=== PATIENT | female | born 1940 | race Caucasian/White ===

== ENCOUNTER → 2019-06-10 13:05 | Outpatient (CLI) | payer MEDICARE, SELFPAY | PROVIDERS: PCP Emergency Medicine; Visit Provider Emergency Medicine | DX: I25.10 Atherosclerotic heart disease of native coronary artery without angina pectoris (principal) | CPT/HCPCS: 93306 ==

== ENCOUNTER → 2019-07-01 13:32 | Outpatient (CLI) | payer MEDICARE, SELFPAY ==
--- NOTE | 2019-07-01 13:41 | XR_ITS ---
PROCEDURE: XR SHOULDER RT MIN 2V CLINICAL INDICATION: right shoulder pain COMPARISON: No exams were available for comparison FINDINGS: There are moderate osteoarthritic changes of the glenohumeral joint. There is irregularity of the humeral head at the greater tuberosity. No fracture or dislocation. IMPRESSION: Osteoarthritic changes of the glenohumeral joint Dictated by: Crow Oneill MD 07/01/2019 17:01 Electronically signed by Crow Oneill MD in [place] 07/01/2019 17:01
== END ==
PROVIDERS: PCP Emergency Medicine; Visit Provider Orthopaedic Surgery
DX: M25.511 Pain in right shoulder (principal)
CPT/HCPCS: 73030

== ENCOUNTER 2019-07-29 13:09 | Inpatient (IN) ==
--- NOTE | 2019-07-29 13:12 | Emergency Department Note ---
ED Disposition Clinical Impression: Acute and chronic respiratory failure with hypoxia Community acquired pneumonia Qualifiers: Laterality: right Lung location: lower lobe of lung Qualified Code(s): J18.1 - Lobar pneumonia, unspecified organism Disposition: Admitted As Inpatient Condition on Discharge: Fair Instructions: Pneumonia-Adult Additional Instructions: Patient admitted with sepsis protocol for healthcare acquired pneumonia being bolused with a liter of lactated Ringer and a liter of normal saline and being started on Zosyn and vancomycin with pharmacy to dose and also being placed on 30% Ventimask for oxygen Time of Disposition: 14:09 - Critical Care Critical Care Time: Yes Attestation: On , the high probability of a clinically significant, sudden or life threatening deterioration of the following system(s) required my full and direct attention, intervention and personal management. The time I documented below is in addition to time spent performing reported procedures but includes the following listed in this critical care notation. Total Critical Care Time: 35 Vital system(s) involved:: Respiratory Failure My critical care processes included: Assessment & monitoring of V/S, Initial and Re-exams, Data Review/Interpretation, Coordinating Care, Medication Orders and management, Documentation Medical Decision Making - Medical Records Medical records reviewed: Yes: I reviewed the patient's medical records. - Aldo Inquiry Pt receiving controlled substance: No Aldo was queried for this patient: No Vital Signs: 07/29/19 13:23 Temperature 97.5 F L Temperature Source Oral Pulse Rate [Left Radial] 92 H Respiratory Rate 29 H Blood Pressure [Right Arm] 120/47 L Blood Pressure Mean [Right Arm] 71 Blood Pressure Source [Right Arm] Automatic Cuff Blood Pressure Position [Right Arm] Sitting 02 Sat by Pulse Oximetry 91 L Oxygen Delivery Method Room Air - Lab Data Lab results reviewed: Yes: I reviewed the patient's lab results. Lab Results 07/29/19 13:00: WBC 18.1 H, RBC 4.45, Hgb 12.3, Hct 41.0, MCV 92.0, MCH 27.7, MCHC 30.1 L, RDW 15.2, Plt Count 545 H, MPV 7.7, Neut % (Auto) 85.8 H, Lymph % (Auto) 7.2 L, [place] % (Auto) 6.8, Eos % (Auto) 0.1, Baso % (Auto) 0.2, Neut # (Auto) 15.5 H, Lymph # (Auto) 1.3, [place] # (Auto) 1.2 H, Eos # (Auto) 0.0, Baso # (Auto) 0.0 07/29/19 13:12: Specimen Source Right brachial, O2 % Room air, ABG pH 7.47 H, ABG pCO2 29.2 L, ABG pO2 54.2 L, ABG HCO3 20.9 L, ABG Total CO2 21.8 L, ABG O2 Saturation 90, ABG Base Excess -2.7 L, Crow Test Acceptable Result diagrams: 07/29/19 13:00 Orders (Tests/Meds): ED MEDICATIONS Generic Name Dose Route Start Last Admin Trade Name Freq PRN Reason Stop Dose Admin Sodium Chloride 1,000 mls @ 999 mls/hr 07/29/19 14:00 Sod Chlor 0.9% 1000ml Bag IV 07/29/19 15:00 .Q1H1M FRANCK Piperacillin Sod/Tazobactam 100 mls @ 100 mls/hr 07/29/19 13:59 Sod 3.375 gm/ Sodium Chloride IV 07/29/19 14:58 ONCE ONE Protocol Lactated Ringer's 1,000 mls @ 999 mls/hr 07/29/19 14:15 Lactated Ringer's 1000 Ml Bag IV 07/29/19 15:15 .Q1H1M FRANCK Miscellaneous 1 each 07/29/19 14:00 Vancomycin Consult Request * 08/28/19 13:59 CONSULT PHARMACY FRANCK Discontinued Medications Generic Name Dose Route Start Last Admin Trade Name Freq PRN Reason Stop Dose Admin Albuterol Sulfate 2.5 mg 07/29/19 13:14 Albuterol 0.083% 2.5mg/3ml Neb IH 07/29/19 13:15 ONCE ONE Lactated Ringer's 1,910 mls @ 955 mls/hr 07/29/19 13:59 07/29/19 14:02 Lactated Ringer's 1000 Ml Bag 30 ml/kg infuse over 2 hr (1910 ml) 07/29/19 15:58 Not Given IV .Q2H ONE ORDERS Category Date Time Status XR chest portable Stat Exams 07/29/19 13:07 Taken BNP [B-Type Natriuretic Peptide] Stat Lab 07/29/19 13:00 Received Complete Blood Count Auto Diff Stat Lab 07/29/19 13:00 Results Comprehensive Metabolic Panel Stat Lab 07/29/19 13:00 Received Lactic Acid Stat Lab 07/29/19 13:07 Ordered Rapid Influenza A&B Antigens Stat Lab 07/29/19 13:12 Ordered Strep Scrn Group A (Rapid) Stat Lab 07/29/19 13:12 Ordered Troponin I Stat Lab 07/29/19 13:00 Received Blood Culture Stat Micro 07/29/19 13:07 Ordered - Radiology Data #1 Image(s): Chest Image Reviewed: Yes I reviewed the patient's radiology results, Yes I reviewed the patient's radiology image Right lower lobe pneumonia General Adult HPI - General Stated complaint: soa Time Seen by Provider: 07/29/19 13:09 Mode of Arrival: EMS Source of Information: Patient, EMS Limitations: Physical Limitations - History of Present Illness HPI narrative: Patient is a 78-year-old white female from [facility] who comes in with complaint of shortness of breath and cough for the past 2 weeks she is continually coughing to the point that she can hardly answer questions but she says she may have had some fever and is coughing up some yellow mucus she also has a sore throat and says her chest hurts Onset (ago): week(s) Location: chest - Related Data Home Medications Medication Instructions Recorded Confirmed Aspirin [Aspirin 81mg chewable 81 mg PO DAILY 07/14/18 07/29/19 tab] alendronate 70 mg tablet 70 mg PO QWEEK 03/20/19 07/29/19 benzonatate 100 mg capsule 100 mg PO DAILY PRN cap 03/20/19 07/29/19 guaifenesin 100 mg/5 mL oral liquid 200 mg PO Q4H PRN 03/20/19 07/29/19 loperamide 2 mg capsule 2 mg PO Q3H PRN cap 03/20/19 07/29/19 nitroglycerin 0.4 mg sublingual 0.4 mg SUBLINGUAL Q5-15M PRN 03/20/19 07/29/19 tablet acetaminophen 325 mg capsule 325 mg PO Q6H PRN 07/09/19 07/29/19 Allergies Allergy/AdvReac Type Severity Reaction Status Date / Time morphine Allergy Severe Anaphylaxis Verified 07/16/19 11:53 hydrocodone Allergy Intermediate Verified 07/16/19 11:53 atropine [From ] Allergy Mild Verified 07/16/19 11:53 calcium Allergy Mild Verified 07/16/19 11:53 calcium carbonate Allergy Mild Verified 07/16/19 11:53 [From Florical] codeine Allergy Mild Verified 07/16/19 11:53 dicyclomine [From Bentyl] Allergy Mild Verified 07/16/19 11:53 erythromycin base Allergy Mild Verified 07/16/19 11:53 [From Erythrocin] hyoscyamine [From ] Allergy Mild Verified 07/16/19 11:53 levofloxacin [From Levaquin] Allergy Mild Verified 07/16/19 11:53 melatonin Allergy Mild Verified 07/16/19 11:53 pantoprazole Allergy Mild Verified 07/16/19 11:53 phenobarbital [From ] Allergy Mild Verified 07/16/19 11:53 propoxyphene Allergy Mild Verified 07/16/19 11:53 scopolamine [From ] Allergy Mild Verified 07/16/19 11:53 sodium fluoride Allergy Mild Verified 07/16/19 11:53 [From Florical] Sulfa (Sulfonamide Allergy Mild Verified 07/16/19 11:53 Antibiotics) tizanidine Allergy Mild Verified 07/16/19 11:53 [facility] History - Hepatitis A Screen Attestation statement:: This patient has been screened for Hepatitis A risk factors. I have reviewed the patient's past medical history: Yes Medical History: Reports:: Anxiety, Coronary Artery Disease, Gastroesophageal Reflux Disease(GERD), Hyperlipidemia, Hypertension, Myocardial Infarction, Seizures, Transient Ischemic Attacks (TIA) Other Medical History: Reports: Arthritis Laterality Cases: Other Surgeries: Yes: Appendectomy, Cardiac Catheterization, Colonoscopy, Coronary Stent, EGD, Hysterectomy-Total, Other - Social History Smoking Status: Former smoker Alcohol Intake: never Substance Use Type: denies use Occupational Status: disabled - Psychiatric History Pschychiatric History:: Reports:: Anxiety Family Hx:: Coronary Artery Disease, Cancer Comment: Father-CAD ROS Obtained: Yes All systems reviewed & no additional complaints - Constitutional Constitutional: Reports system reviewed and no additional complaints, except as docu - Eyes Eyes: Reports system reviewed and no additional complaints, except as docu - ENT Ears, Nose, Mouth, and Throat: Reports system reviewed and no additional complaints, except as docu, Reports as per HPI, Reports sore throat - Cardiovascular Cardiovascular: Reports system reviewed and no additional complaints, except as docu, Reports as per HPI - Respiratory Respiratory: Yes system reviewed and no additional complaints, except as docu, Yes as per HPI, Yes chest congestion, Yes cough - Neurologic Neurologic: Reports system reviewed and no additional complaints, except as docu, Reports as per HPI Physical Exam - General General appearance: alert, in distress (Coughing nonstop) - Head Head exam: atraumatic - Eye Eye exam: Present: normal appearance - Chest Chest inspection: Present: normal inspection - Respiratory Respiratory exam: Present: wheezes, other (And rhonchi bilaterally) - Cardiovascular Cardiovascular exam: Present: regular rate - Abdominal Exam Abdominal exam: Present: soft - Neurological Exam Neurological exam: Present: alert, oriented X3 - Psychiatric Psychiatric exam: Present: normal affect
[2019-07-29 13:22] LABS: Basophils % 0.2 % (0.1-2.0); Eosinophils % 0.1 % (0.1-12.0); Hemoglobin 12.3 g/dL (12.2-16.2); Lymphocytes # 1.3 K/mm3 (0.7-4.5); Lymphocytes % 7.2 % (10-50); Mean Corpuscular HGB Conc 30.1 g/dL (31.8-35.4); Mean Platelet Volume 7.7 fl (7.4-10.4); Monocytes # 1.2 K/mm3 (0.1-1.0); Monocytes % 6.8 % (1.7-9.3); Neutrophils # 15.5 K/mm3 (1.8-7.8); Neutrophils % 85.8 % (37.0-80.0); Platelet Count 545 K/mm3 (142-424); Red Blood Count 4.45 M/mm3 (4.20-5.40); Red Cell Distribution Width 15.2 % (11.5-17.5); White Blood Count 18.1 K/mm3 (4.8-10.8)
[2019-07-29 13:39] LABS: ABG Base Excess -2.7 mmol/L (-2.4-2.3); ABG HCO3 20.9 mmhg (22.0-26.0); ABG Oxygen Saturation 90 % (90-100); ABG PCO2 29.2 mmhg (35.0-45.0); ABG PH 7.47 mmol/L (7.35-7.45); ABG PO2 54.2 mmhg (80-100); ABG TCO2 21.8 mmhg (23-27)
[2019-07-29 13:41] LABS: Allen's Test Acceptable; Oxygen ROOM AIR %
[2019-07-29 14:13] LABS: Lymphocytes % 13 % (10-50); Monocytes % 9 % (2-9); Neutrophils % 78 % (42-76); Total Cells Counted 100
[2019-07-29 14:14] LABS: Hypochromasia 2+
[2019-07-29 15:32] LABS: Albumin Level 3.7 gm/dL (3.4-5.0); Albumin/Globulin Ratio 0.8 (1.1-1.8); Anion Gap 19.2 mEq/L (5-15); Bilirubin,Total 0.5 mg/dL (0.2-1.0); Calcium 9.6 mg/dL (8.5-10.1); Globulin 4.7 gm/dl (1.3-3.2); Total Protein,Serum 8.4 gm/dL (6.4-8.2)
[2019-07-29 15:33] LABS: Microscopic, Urine URINE MICROSCOPIC (MICROSCOPIC)
[2019-07-29 15:54] LABS: Appearance,Urine CLEAR (Clear); Bilirubin,Urine Negative (Negative); Blood, Urine Negative (Negative); Color,Urine YELLOW (Yellow); Glucose,Urine (UA) Negative (Negative); Ketones,Urine Negative (Negative); Leukocyte Esterase,Urine 1+ (Negative); Protein,Urine TRACE (Negative); Urobilinogen,Urine 0.2 EU/dl (0.2)
[2019-07-29 16:14] LABS: Bacteria,Urine 4+ /lpf
--- NOTE | 2019-07-29 16:30 | Pharmacy Consult Notes ---
- Pharmacy Consult Date: 07/29/19 Time: 16:27 Referring provider: DR. SHAHID Reason for Consult:: VANCOMYCIN DOSING Allergies and ADEs:: Allergies Allergy/AdvReac Type Severity Reaction Status Date / Time morphine Allergy Severe Anaphylaxis Verified 07/16/19 11:53 hydrocodone Allergy Intermediate Verified 07/16/19 11:53 atropine [From ] Allergy Mild Verified 07/16/19 11:53 calcium Allergy Mild Verified 07/16/19 11:53 calcium carbonate Allergy Mild Verified 07/16/19 11:53 [From Florical] codeine Allergy Mild Verified 07/16/19 11:53 dicyclomine [From Bentyl] Allergy Mild Verified 07/16/19 11:53 erythromycin base Allergy Mild Verified 07/16/19 11:53 [From Erythrocin] hyoscyamine [From ] Allergy Mild Verified 07/16/19 11:53 levofloxacin [From Levaquin] Allergy Mild Verified 07/16/19 11:53 melatonin Allergy Mild Verified 07/16/19 11:53 pantoprazole Allergy Mild Verified 07/16/19 11:53 phenobarbital [From ] Allergy Mild Verified 07/16/19 11:53 propoxyphene Allergy Mild Verified 07/16/19 11:53 scopolamine [From ] Allergy Mild Verified 07/16/19 11:53 sodium fluoride Allergy Mild Verified 07/16/19 11:53 [From Florical] Sulfa (Sulfonamide Allergy Mild Verified 07/16/19 11:53 Antibiotics) tizanidine Allergy Mild Verified 07/16/19 11:53 Home Medications:: Home Medications Medication Instructions Recorded Confirmed Type Aspirin [Aspirin 81mg chewable 81 mg PO DAILY 07/14/18 07/29/19 History tab] alendronate 70 mg tablet 70 mg PO QWEEK 03/20/19 07/29/19 History benzonatate 100 mg capsule 100 mg PO DAILY PRN cap 03/20/19 07/29/19 History guaifenesin 100 mg/5 mL oral liquid 200 mg PO Q4H PRN 03/20/19 07/29/19 History loperamide 2 mg capsule 2 mg PO Q3H PRN cap 03/20/19 07/29/19 History nitroglycerin 0.4 mg sublingual 0.4 mg SUBLINGUAL Q5-15M PRN 03/20/19 07/29/19 History tablet acetaminophen 325 mg capsule 325 mg PO Q6H PRN 07/09/19 07/29/19 History Height: 1.35 m Weight: 67.217 kg Laboratory Results:: Laboratory Results - last 24 hr 07/29/19 13:00: WBC 18.1 H, RBC 4.45, Hgb 12.3, Hct 41.0, MCV 92.0, MCH 27.7, MCHC 30.1 L, RDW 15.2, Plt Count 545 H, MPV 7.7, Neut % (Auto) 85.8 H, Lymph % (Auto) 7.2 L, [place] % (Auto) 6.8, Eos % (Auto) 0.1, Baso % (Auto) 0.2, Neut # (Auto) 15.5 H, Lymph # (Auto) 1.3, [place] # (Auto) 1.2 H, Eos # (Auto) 0.0, Baso # (Auto) 0.0, Total Counted 100, Neutrophils % (Manual) 78 H, Lymphocytes % (Manual) 13, Monocytes % (Manual) 9, Platelet Estimate Moderate increase, Hypochromasia 2+ 07/29/19 13:00: Sodium 136, Potassium 4.2, Chloride 97 L, Carbon Dioxide 24, Anion Gap 19.2 H, BUN 26 H, Creatinine 0.96, Estimated Creat Clear 46, Estimated GFR 56 L, Est GFR ( Amer) 68, Glucose 148 H, Calcium 9.6, Total Bilirubin 0.5, AST 39 H, ALT 15, Alkaline Phosphatase 67, Troponin I 1.32 H, Total Protein 8.4 H, Albumin 3.7, Globulin 4.7 H, Albumin/Globulin Ratio 0.8 L 07/29/19 13:00: B-Natriuretic Peptide 967 H 07/29/19 13:12: Specimen Source Right brachial, O2 % Room air, ABG pH 7.47 H, ABG pCO2 29.2 L, ABG pO2 54.2 L, ABG HCO3 20.9 L, ABG Total CO2 21.8 L, ABG O2 Saturation 90, ABG Base Excess -2.7 L, Crow Test Acceptable 07/29/19 14:08: Lactate 2.7 H 07/29/19 14:08: Influenza Type A Ag Negative, Influenza Type B Ag Negative 07/29/19 14:08: Group A Strep Rapid Negative 07/29/19 15:28: Urine Color Yellow, Urine Appearance Clear, Urine pH 6.0, Ur Sp ecific [place] 1.020, Urine Protein Trace, Urine Glucose (UA) Negative, Urine Ketones Negative, Urine Blood Negative, Urine Nitrate Positive, Urine Bilirubin Negative, Urine Urobilinogen 0.2, Ur Leukocyte Esterase 1+ A, Urine RBC 5-10, Urine WBC 10-20, Ur Squamous Epith Cells 10-20, Urine Bacteria 4+ Medical History: Reports:: Anxiety, Coronary Artery Disease, Gastroesophageal Reflux Disease(GERD), Hyperlipidemia, Hypertension, Myocardial Infarction, Seizures, Transient Ischemic Attacks (TIA) Denies:: Diabetes Mellitus Type 1, Diabetes Mellitus Type 2 Assessment and Plan - Assessment and plan all Dx Assessment and Plan for all problems:: BASED ON PATIENT FACTORS, RECOMMEND VANCOMYCIN 750MG EVERY 24 HOURS STARTING 07/30/19 AT 1600. PATIENT RECEIVED ONE TIME LOADING DOSE OF VANCOMYCIN 1,250MG IN ER BEFORE LABS WERE COMPLETED. PHARMACY WILL MONITOR AND ADJUST DOSE DIEGO ROPRIATE. -THEA MARIO, TAYOD
--- NOTE | 2019-07-29 16:34 | Consult Report ---
History of Present Illness Consult date: 07/29/19 Requesting physician: Donaldo Davis Consult reason: shortness of breath Chief complaint: SOB Additional Medical History:: 1. CAD 2. HTN 3. HLD 4. DM 5. gerd 6. TIA 7. GA 8. Seizures History of present illness: This is a 78 year old female who was admitted from the long-term. Pt has been having worsening SOB for the last 2-3 weeks. She states she is having tightness in the chest as well with her SOB. She states symptoms are severe. at rest. worse with exertion. nothing improves symptoms. she states sheis having to work really hard to breathe. denies fever, chills, Vomiting or diarrhea. She has associated orthopnea. she states that she does not feel well at all. extreme fatigue noted as well. when entering room pt is very labored. she has stridor. using accessory muscles to breathe. pt sounds as if she has adult epiglottitis. will call for stat anesthesia consult for intubation. [facility] History I have reviewed the patient's past medical history: Yes Medical History: Reports:: Anxiety, Coronary Artery Disease, Gastroesophageal Reflux Disease(GERD), Hyperlipidemia, Hypertension, Myocardial Infarction, Seizures, Transient Ischemic Attacks (TIA) Denies:: Diabetes Mellitus Type 1, Diabetes Mellitus Type 2 *Have you ever received a pneumonia vaccine?: No *Have you received a flu vaccine this season?: No Other Medical History: Reports: Arthritis Laterality Cases: Left: Arthroscopy Hip, Arthroscopy Knee Other Surgeries: Yes: Appendectomy, Cardiac Catheterization, Colonoscopy, Coronary Stent, EGD, Hysterectomy-Total, Other - *Social History Smoking Status: Former smoker Alcohol Intake: never Substance Use Type: denies use *Occupational Status:: disabled *Travel in the last 8 weeks: None - Psychiatric History Pschychiatric History:: Reports:: Anxiety Family Hx:: Coronary Artery Disease, Cancer Meds Home Medications Medication Instructions Recorded Confirmed Type Aspirin [Aspirin 81mg chewable 81 mg PO DAILY 07/14/18 07/29/19 History tab] alendronate 70 mg tablet 70 mg PO QWEEK 03/20/19 07/29/19 History benzonatate 100 mg capsule 100 mg PO DAILY PRN cap 03/20/19 07/29/19 History guaifenesin 100 mg/5 mL oral liquid 200 mg PO Q4H PRN 03/20/19 07/29/19 History loperamide 2 mg capsule 2 mg PO Q3H PRN cap 03/20/19 07/29/19 History nitroglycerin 0.4 mg sublingual 0.4 mg SUBLINGUAL Q5-15M PRN 03/20/19 07/29/19 History tablet acetaminophen 325 mg capsule 325 mg PO Q6H PRN 07/09/19 07/29/19 History Allergies Allergy/AdvReac Type Severity Reaction Status Date / Time morphine Allergy Severe Anaphylaxis Verified 07/16/19 11:53 hydrocodone Allergy Intermediate Verified 07/16/19 11:53 atropine [From ] Allergy Mild Verified 07/16/19 11:53 calcium Allergy Mild Verified 07/16/19 11:53 calcium carbonate Allergy Mild Verified 07/16/19 11:53 [From Florical] codeine Allergy Mild Verified 07/16/19 11:53 dicyclomine [From Bentyl] Allergy Mild Verified 07/16/19 11:53 erythromycin base Allergy Mild Verified 07/16/19 11:53 [From Erythrocin] hyoscyamine [From ] Allergy Mild Verified 07/16/19 11:53 levofloxacin [From Levaquin] Allergy Mild Verified 07/16/19 11:53 melatonin Allergy Mild Verified 07/16/19 11:53 pantoprazole Allergy Mild Verified 07/16/19 11:53 phenobarbital [From ] Allergy Mild Verified 07/16/19 11:53 propoxyphene Allergy Mild Verified 07/16/19 11:53 scopolamine [From ] Allergy Mild Verified 07/16/19 11:53 sodium fluoride Allergy Mild Verified 07/16/19 11:53 [From Florical] Sulfa (Sulfonamide Allergy Mild Verified 07/16/19 11:53 Antibiotics) tizanidine Allergy Mild Verified 07/16/19 11:53 Review of Systems - Review of Systems Review of systems:: pertinent systems reviewed and negative unless documented below - Constitutional Reports fever(s), Reports weakness - *Cardiovascular Reports chest pain, Reports chest pain at rest, Reports chest pain with activity, Reports shortness of breath, Reports shortness of breath with activity - *Respiratory Reports change in phlegm color, Reports chest congestion, Reports cough, Reports shortness of breath, Reports shortness of breath with activity, Reports stridor Comments: accessory muscle use Exam Vital signs and Labs for Last 24 Hours: Temp Pulse Resp BP Pulse Ox 98.4 F 84 22 118/75 98 07/29/19 15:31 07/29/19 15:43 07/29/19 15:31 07/29/19 15:31 07/29/19 14:42 Laboratory Results - last 24 hr 07/29/19 13:00: WBC 18.1 H, RBC 4.45, Hgb 12.3, Hct 41.0, MCV 92.0, MCH 27.7, MCHC 30.1 L, RDW 15.2, Plt Count 545 H, MPV 7.7, Neut % (Auto) 85.8 H, Lymph % (Auto) 7.2 L, [place] % (Auto) 6.8, Eos % (Auto) 0.1, Baso % (Auto) 0.2, Neut # (Auto) 15.5 H, Lymph # (Auto) 1.3, [place] # (Auto) 1.2 H, Eos # (Auto) 0.0, Baso # (Auto) 0.0, Total Counted 100, Neutrophils % (Manual) 78 H, Lymphocytes % (Manual) 13, Monocytes % (Manual) 9, Platelet Estimate Moderate increase, Hypochromasia 2+ 07/29/19 13:00: Sodium 136, Potassium 4.2, Chloride 97 L, Carbon Dioxide 24, Anion Gap 19.2 H, BUN 26 H, Creatinine 0.96, Estimated Creat Clear 46, Estimated GFR 56 L, Est GFR ( Amer) 68, Glucose 148 H, Calcium 9.6, Total Bilirubin 0.5, AST 39 H, ALT 15, Alkaline Phosphatase 67, Troponin I 1.32 H, Total Protein 8.4 H, Albumin 3.7, Globulin 4.7 H, Albumin/Globulin Ratio 0.8 L 07/29/19 13:00: B-Natriuretic Peptide 967 H 07/29/19 13:12: Specimen Source Right brachial, O2 % Room air, ABG pH 7.47 H, ABG pCO2 29.2 L, ABG pO2 54.2 L, ABG HCO3 20.9 L, ABG Total CO2 21.8 L, ABG O2 Saturation 90, ABG Base Excess -2.7 L, Crow Test Acceptable 07/29/19 14:08: Lactate 2.7 H 07/29/19 14:08: Influenza Type A Ag Negative, Influenza Type B Ag Negative 07/29/19 14:08: Group A Strep Rapid Negative 07/29/19 15:28: Urine Color Yellow, Urine Appearance Clear, Urine pH 6.0, Ur Specific [place] 1.020, Urine Protein Trace, Urine Glucose (UA) Negative, Urine Ketones Negative, Urine Blood Negative, Urine Nitrate Positive, Urine Bilirubin Negative, Urine Urobilinogen 0.2, Ur Leukocyte Esterase 1+ A, Urine RBC 5-10, Urine WBC 10-20, Ur Squamous Epith Cells 10-20, Urine Bacteria 4+ I & O for Last 24 hours: Intake & Output 07/26/19 07/27/19 07/28/19 07/29/19 23:59 23:59 23:59 23:59 Weight 148 lb 3 oz Narrative: EKG is ST with old anteroseptal GA pattern and diffuse ST/TWA. - Constitutional severe distress, obese, chronically ill appearing, disheveled, agitated - *Routine HEENT Exam Head: Present: normocephalic, atraumatic Eye: Present: EOMI, PERRL ENT: Present: mucous membranes moist - *Routine Neck Exam Present: supple, full ROM. Absent: JVD, lymphadenopathy Comments: due to stridor unable to assess carotids - *Routine Respiratory Exam Present: accessory muscle use, rhonchi, stridor, wheezes - *Routine Cardiovascular Exam Present: RRR, Normal S1, Normal S2, tachycardia - *Routine Abdominal Exam Present: soft, normoactive bowel sounds. Absent: tenderness - *Routine Extremities Exam Present: full ROM, pulses intact, normal capillary refill. Absent: cyanosis, clubbing, edema - *Routine Skin Exam Present: intact, warm. Absent: erythema, rash - *Routine Neurological Exam Present: alert, oriented X3, CN II-XII intact. Absent: sensory deficit, motor deficit - Routine Psychiatric Exam Present: normal affect, normal thought process, anxious - Detailed Eye Exam Eyelids: Left normal inspection Assessment and Plan (1) Respiratory distress Current visit: Yes Status: Acute Category: Medical Code(s): R06.03 - Acute respiratory distress (2) Stridor Current visit: Yes Status: Acute Category: Medical Code(s): R06.1 - Stridor (3) Epiglottitis Current visit: Yes Status: Acute Category: Medical Code(s): J05.10 - Acute epiglottitis without obstruction (4) CAD (coronary artery disease) Current visit: Yes Status: Acute Category: Medical Code(s): I25.10 - Atherosclerotic heart disease of [place] coronary artery without angina pectoris (5) HLD (hyperlipidemia) Current visit: Yes Status: Acute Category: Medical Code(s): E78.5 - Hyperlipidemia, unspecified (6) Community acquired pneumonia Current visit: Yes Status: Acute Qualifiers: Laterality: right Lung location: lower lobe of lung Qualified Code(s): J18.1 - Lobar pneumonia, unspecified organism Category: Medical Code(s): J18.9 - Pneumonia, unspecified organism (7) Acute and chronic respiratory failure with hypoxia Current visit: Yes Status: Acute Category: Medical Code(s): J96.21 - Acute and chronic respiratory failure with hypoxia (8) SOB (shortness of breath) Current visit: No Status: Chronic Category: Medical Code(s): R06.02 - Shortness of breath (9) HTN (hypertension) Current visit: No Status: Acute Qualifiers: Hypertension type: essential hypertension Qualified Code(s): I10 - Essential (primary) hypertension Category: Medical Code(s): I10 - Essential (primary) hypertension (10) Elevated troponin Current visit: Yes Status: Acute Category: Medical Code(s): R79.89 - Other specified abnormal findings of blood chemistry - Assessment and plan all Dx Assessment and Plan for all problems:: plan: 1. pt in respiratory distress. pt has stridor and using accessory muscles. pt is hypoxemic. she likely has epiglottitis per Maldonado. stat anesthesia consult for intubation. 2. racemic epi now. 3. solumedrol 125 mg IV now. 4. non-rebreather until intubation is complete. 5. CAD is present. history of 2 stents. troponin elevated. she will need LHC once stable. 6. BP is low. getting bolus of fluid. 7. LDL goal is < 55. 8. RLL pneumonia is present. getting antibiotics per PCP. 9. Once intubated pt need propofol drip. 10. echo to [facility] , stat. 11. pt needs transferred to [facility] per Maldonado for treatment of lung disease and possible epiglottitis. thank you for the opportunity to help participate in the care of this patient.
[2019-07-29 18:52] LABS: ABG Base Excess -5.9 mmol/L (-2.4-2.3); ABG HCO3 18.9 mmhg (22.0-26.0); ABG Oxygen Saturation 98 % (90-100); ABG PCO2 30.9 mmhg (35.0-45.0); ABG PO2 108.6 mmhg (80-100); ABG TCO2 19.8 mmhg (23-27)
[2019-07-29 18:54] LABS: Oxygen 80 %
[2019-07-29 18:55] LABS: Tidal Volume 400
--- NOTE | 2019-07-29 22:39 | History & Physical Report ---
*Admission Date: 07/29/19 *Chief complaint: sob *History of present illness: this wf was sent from [facility] with sob and cough - pt was found to have in ed-Patient is a 78-year-old white female from [facility] who comes in with complaint of shortness of breath and cough for the past 2 weeks she is continually coughing to the point that she can hardly answer questions but she says she may have had some fever and is coughing up some yellow mucus she also has a sore throat and says her chest hurts pt with elevated trop and will be seen by card AD 2. HTN 3. HLD 4. DM 5. gerd 6. TIA 7. OR 8. Seizures History of present illness: This is a 78 year old female who was admitted from the [facility]. Pt has been having worsening SOB for the last 2-3 weeks. She states she is having tightness in the chest as well with her SOB. She states symptoms are severe. at rest. wor se with exertion. nothing improves symptoms. she states sheis having to work really hard to breathe. denies fever, chills, Vomiting or diarrhea. She has associated orthopnea. she states that she does not feel well at all. extreme fatigue noted as well. when entering room pt is very labored. she has stridor. using accessory muscles to breathe. pt sounds as if she has adult epiglottitis. will call for stat anesthesia consult for intubation. [facility] History I have reviewed the patient's past medical history: Yes Medical History: Reports:: Anxiety, Coronary Artery Disease, Gastroesophageal Reflux Disease(GERD), Hyperlipidemia, Hypertension, Myocardial Infarction, Seizures, Transient Ischemic Attacks (TIA) Denies:: Diabetes Mellitus Type 1, Diabetes Mellitus Type 2 *Have you ever received a pneumonia vaccine?: No (unsure) *Have you received a flu vaccine this season?: No (unsure) Other Medical History: Reports: Arthritis Laterality Cases: Left: Arthroscopy Hip, Arthroscopy Knee Other Surgeries: Yes: Appendectomy, Cardiac Catheterization, Colonoscopy, Coronary Stent, EGD, Hysterectomy-Total, Other - *Social History Smoking Status: Former smoker Alcohol Intake: never Substance Use Type: denies use *Occupational Status:: disabled *Travel in the last 8 weeks: None - Psychiatric History Pschychiatric History:: Reports:: Anxiety Family Hx:: Coronary Artery Disease, Cancer Review of Systems - Review of Systems Review of systems:: unable to obtain - *Neurologic Reports weakness Meds Home Medications Medication Instructions Recorded Confirmed Type Aspirin [Aspirin 81mg chewable 81 mg PO DAILY 07/14/18 07/29/19 History tab] alendronate 70 mg tablet 70 mg PO QWEEK 03/20/19 07/29/19 History benzonatate 100 mg capsule 100 mg PO DAILY PRN cap 03/20/19 07/29/19 History guaifenesin 100 mg/5 mL oral liquid 200 mg PO Q4H PRN 03/20/19 07/29/19 History loperamide 2 mg capsule 2 mg PO Q3H PRN cap 03/20/19 07/29/19 History nitroglycerin 0.4 mg sublingual 0.4 mg SUBLINGUAL Q5-15M PRN 03/20/19 07/29/19 History tablet acetaminophen 325 mg capsule 325 mg PO Q6H PRN 07/09/19 07/29/19 History Allergies Allergy/AdvReac Type Severity Reaction Status Date / Time morphine Allergy Severe Anaphylaxis Verified 07/16/19 11:53 hydrocodone Allergy Intermediate Verified 07/16/19 11:53 atropine [From ] Allergy Mild Verified 07/16/19 11:53 calcium Allergy Mild Verified 07/16/19 11:53 calcium carbonate Allergy Mild Verified 07/16/19 11:53 [From Florical] codeine Allergy Mild Verified 07/16/19 11:53 dicyclomine [From Bentyl] Allergy Mild Verified 07/16/19 11:53 erythromycin base Allergy Mild Verified 07/16/19 11:53 [From Erythrocin] hyoscyamine [From ] Allergy Mild Verified 07/16/19 11:53 levofloxacin [From Levaquin] Allergy Mild Verified 07/16/19 11:53 melatonin Allergy Mild Verified 07/16/19 11:53 pantoprazole Allergy Mild Verified 07/16/19 11:53 phenobarbital [From ] Allergy Mild Verified 07/16/19 11:53 propoxyphene Allergy Mild Verified 07/16/19 11:53 scopolamine [From ] Allergy Mild Verified 07/16/19 11:53 sodium fluoride Allergy Mild Verified 07/16/19 11:53 [From Florical] Sulfa (Sulfonamide Allergy Mild Verified 07/16/19 11:53 Antibiotics) tizanidine Allergy Mild Verified 07/16/19 11:53 Exam Vital signs and Labs for Last 24 Hours: Temp Pulse Resp BP Pulse Ox 99.7 F H 72 70 H 122/50 L 96 07/29/19 22:00 07/29/19 21:00 07/29/19 22:00 07/29/19 22:00 07/29/19 22:00 Laboratory Results - last 24 hr 07/29/19 13:00: WBC 18.1 H, RBC 4.45, Hgb 12.3, Hct 41.0, MCV 92.0, MCH 27.7, MCHC 30.1 L, RDW 15.2, Plt Count 545 H, MPV 7.7, Neut % (Auto) 85.8 H, Lymph % (Auto) 7.2 L, [place] % (Auto) 6.8, Eos % (Auto) 0.1, Baso % (Auto) 0.2, Neut # (Auto) 15.5 H, Lymph # (Auto) 1.3, [place] # (Auto) 1.2 H, Eos # (Auto) 0.0, Baso # (Auto) 0.0, Total Counted 100, Neutrophils % (Manual) 78 H, Lymphocytes % (Manual) 13, Monocytes % (Manual) 9, Platelet Estimate Moderate increase, Hypochromasia 2+ 07/29/19 13:00: Sodium 136, Potassium 4.2, Chloride 97 L, Carbon Dioxide 24, Anion Gap 19.2 H, BUN 26 H, Creatinine 0.96, Estimated Creat Clear 46, Estimated GFR 56 L, Est GFR ( Amer) 68, Glucose 148 H, Calcium 9.6, Total Bilirubin 0.5, AST 39 H, ALT 15, Alkaline Phosphatase 67, Troponin I 1.32 H, Total Protein 8.4 H, Albumin 3.7, Globulin 4.7 H, Albumin/Globulin Ratio 0.8 L 07/29/19 13:00: B-Natriuretic Peptide 967 H 07/29/19 13:12: Specimen Source Right brachial, O2 % Room air, ABG pH 7.47 H, ABG pCO2 29.2 L, ABG pO2 54.2 L, ABG HCO3 20.9 L, ABG Total CO2 21.8 L, ABG O2 Saturation 90, ABG Base Excess -2.7 L, Crow Test Acceptable 07/29/19 14:08: Lactate 2.7 H 07/29/19 14:08: Influenza Type A Ag Negative, Influenza Type B Ag Negative 07/29/19 14:08: Group A Strep Rapid Negative 07/29/19 15:28: Urine Color Yellow, Urine Appearance Clear, Urine pH 6.0, Ur Specific [place] 1.020, Urine Protein Trace, Urine Glucose (UA) Negative, Urine Ketones Negative, Urine Blood Negative, Urine Nitrate Positive, Urine Bilirubin Negative, Urine Urobilinogen 0.2, Ur Leukocyte Esterase 1+ A, Urine RBC 5-10, Urine WBC 10-20, Ur Squamous Epith Cells 10-20, Urine Bacteria 4+ 07/29/19 18:11: Specimen Source Left brachial, O2 % 80, ABG pH 7.40, ABG pCO2 30.9 L, ABG pO2 108.6 H, ABG HCO3 18.9 L, ABG Total CO2 19.8 L, ABG O2 Saturation 98, ABG Base Excess -5.9 L, Tidal Volume 400 07/29/19 18:36: Lactate 1.3 I & O for Last 24 hours: Intake & Output 07/27/19 07/28/19 07/29/19 07/30/19 11:59 11:59 11:59 11:59 Intake Total 787 / 787 Output Total 122 / 122 Balance 665 / 665 Weight 148 lb 3 oz Microbiology Reports for the Last 24 Hours: Microbiology 07/29/19 16:55 Sputum - Endotracheal Tube Aspirate Gram Stain - Final - Constitutional moderate distress, obese, somnolent - *Routine HEENT Exam Head: Present: normocephalic Eye: Present: EOMI, PERRL ENT: Present: mucous membranes dry - *Routine Neck Exam Absent: JVD - *Routine Respiratory Exam Present: decreased breath sounds Comments: ointubated - *Routine Cardiovascular Exam Present: RRR, murmur, S4 - *Routine Abdominal Exam Present: soft - *Routine Extremities Exam Absent: calf tenderness - *Routine Skin Exam Present: intact - *Routine Neurological Exam Present: altered mental status on drip and intubated - Routine Psychiatric Exam Present: unable to assess Assessment and Plan (1) Respiratory distress Current visit: Yes Status: Acute Category: Medical Code(s): R06.03 - Acute respiratory distress (2) Stridor Current visit: Yes Status: Acute Category: Medical Code(s): R06.1 - Stridor (3) Epiglottitis Current visit: Yes Status: Acute Category: Medical Code(s): J05.10 - Acute epiglottitis without obstruction (4) CAD (coronary artery disease) Current visit: Yes Status: Acute Category: Medical Code(s): I25.10 - Atherosclerotic heart disease of [place] coronary artery without angina pectoris (5) HLD (hyperlipidemia) Current visit: Yes Status: Acute Category: Medical Code(s): E78.5 - Hyperlipidemia, unspecified (6) Community acquired pneumonia Current visit: Yes Status: Acute Qualifiers: Laterality: right Lung location: lower lobe of lung Qualified Code(s): J18.1 - Lobar pneumonia, unspecified organism Category: Medical Code(s): J18.9 - Pneumonia, unspecified organism (7) Acute and chronic respiratory failure with hypoxia Current visit: Yes Status: Acute Category: Medical Code(s): J96.21 - Acute and chronic respiratory failure with hypoxia (8) SOB (shortness of breath) Current visit: No Status: Chronic Category: Medical Code(s): R06.02 - Shortness of breath (9) HTN (hypertension) Current visit: No Status: Acute Qualifiers: Hypertension type: essential hypertension Qualified Code(s): I10 - Essential (primary) hypertension Category: Medical Code(s): I10 - Essential (primary) hypertension (10) Elevated troponin Current visit: Yes Status: Acute Category: Medical Code(s): R79.89 - Other specified abnormal findings of blood chemistry
[2019-07-30 05:51] LABS: Basophils % 0.2 % (0.1-2.0); Eosinophils # 0.1 K/mm3 (0.0-0.4); Eosinophils % 0.8 % (0.1-12.0); Hematocrit 34.3 % (37.0-47.0); Lymphocytes # 1.2 K/mm3 (0.7-4.5); Lymphocytes % 6.9 % (10-50); Mean Corpuscular HGB Conc 30.1 g/dL (31.8-35.4); Mean Corpuscular Volume 91.6 fl (81-99); Mean Platelet Volume 7.6 fl (7.4-10.4); Monocytes # 1.4 K/mm3 (0.1-1.0); Monocytes % 8.2 % (1.7-9.3); Neutrophils % 83.8 % (37.0-80.0); Platelet Count 396 K/mm3 (142-424); Red Blood Count 3.75 M/mm3 (4.20-5.40); Red Cell Distribution Width 15.3 % (11.5-17.5); White Blood Count 16.7 K/mm3 (4.8-10.8)
[2019-07-30 05:56] LABS: Hemoglobin 10.2 g/dL (12.2-16.2)
[2019-07-30 06:11] LABS: Albumin Level 2.3 gm/dL (3.4-5.0); Albumin/Globulin Ratio 0.6 (1.1-1.8); Anion Gap 13.5 mEq/L (5-15); Bilirubin,Total 0.3 mg/dL (0.2-1.0); Globulin 3.8 gm/dl (1.3-3.2); Total Protein,Serum 6.1 gm/dL (6.4-8.2)
[2019-07-30 07:09] LABS: Calcium 7.9 mg/dL (8.5-10.1)
[2019-07-30 08:28] LABS: Lymphocytes % 9 % (10-50); Monocytes % 9 % (2-9); Neutrophils % 72 % (42-76); Total Cells Counted 100
--- NOTE | 2019-07-30 08:57 | Progress Note ---
Subjective Date: 07/30/19 Time: 08:54 Principal diagnosis: Respiratory distress, Pneumonia, elevated troponin Interval history: 78 yo WF in ICU, intubated and on the ventilator. Awake and communicating with pen/paper but not able to read/understand what she is trying to communicate. She endorses chest pain but unable to reproduce with palpation. History of coronary stents per Nurse. Telemetry is sinus rhythm Exam Vital signs and Labs for Last 24 Hours: Temp Pulse Resp BP Pulse Ox 99.2 F 60 14 105/45 L 100 07/30/19 07:00 07/30/19 07:00 07/30/19 07:00 07/30/19 07:00 07/30/19 07:00 Laboratory Results - last 24 hr 07/29/19 13:00: WBC 18.1 H, RBC 4.45, Hgb 12.3, Hct 41.0, MCV 92.0, MCH 27.7, MCHC 30.1 L, RDW 15.2, Plt Count 545 H, MPV 7.7, Neut % (Auto) 85.8 H, Lymph % (Auto) 7.2 L, [place] % (Auto) 6.8, Eos % (Auto) 0.1, Baso % (Auto) 0.2, Neut # (Auto) 15.5 H, Lymph # (Auto) 1.3, [place] # (Auto) 1.2 H, Eos # (Auto) 0.0, Baso # (Auto) 0.0, Total Counted 100, Neutrophils % (Manual) 78 H, Lymphocytes % (Manual) 13, Monocytes % (Manual) 9, Platelet Estimate Moderate increase, Hypochromasia 2+ 07/29/19 13:00: Sodium 136, Potassium 4.2, Chloride 97 L, Carbon Dioxide 24, Anion Gap 19.2 H, BUN 26 H, Creatinine 0.96, Estimated Creat Clear 46, Estimated GFR 56 L, Est GFR ( Amer) 68, Glucose 148 H, Calcium 9.6, Total Bilirubin 0.5, AST 39 H, ALT 15, Alkaline Phosphatase 67, Troponin I 1.32 H, Total Protein 8.4 H, Albumin 3.7, Globulin 4.7 H, Albumin/Globulin Ratio 0.8 L 07/29/19 13:00: B-Natriuretic Peptide 967 H 07/29/19 13:12: Specimen Source Right brachial, O2 % Room air, ABG pH 7.47 H, ABG pCO2 29.2 L, ABG pO2 54.2 L, ABG HCO3 20.9 L, ABG Total CO2 21.8 L, ABG O2 Saturation 90, ABG Base Excess -2.7 L, Crow Test Acceptable 07/29/19 14:08: Lactate 2.7 H 07/29/19 14:08: Influenza Type A Ag Negative, Influenza Type B Ag Negative 07/29/19 14:08: Group A Strep Rapid Negative 07/29/19 15:28: Urine Color Yellow, Urine Appearance Clear, Urine pH 6.0, Ur Specific [place] 1.020, Urine Protein Trace, Urine Glucose (UA) Negative, Urine Ketones Negative, Urine Blood Negative, Urine Nitrate Positive, Urine Bilirubin Negative, Urine Urobilinogen 0.2, Ur Leukocyte Esterase 1+ A, Urine RBC 5-10, Urine WBC 10-20, Ur Squamous Epith Cells 10-20, Urine Bacteria 4+ 07/29/19 18:11: Specimen Source Left brachial, O2 % 80, ABG pH 7.40, ABG pCO2 30.9 L, ABG pO2 108.6 H, ABG HCO3 18.9 L, ABG Total CO2 19.8 L, ABG O2 Saturation 98, ABG Base Excess -5.9 L, Tidal Volume 400 07/29/19 18:36: Lactate 1.3 07/30/19 05:32: WBC 16.7 H, RBC 3.75 L, Hgb 10.2 L D, Hct 34.3 L, MCV 91.6, MCH 27.5, MCHC 30.1 L, RDW 15.3, Plt Count 396 D, MPV 7.6, Neut % (Auto) 83.8 H, Lymph % (Auto) 6.9 L, [place] % (Auto) 8.2, Eos % (Auto) 0.8, Baso % (Auto) 0.2, Neut # (Auto) 14.0 H, Lymph # (Auto) 1.2, [place] # (Auto) 1.4 H, Eos # (Auto) 0.1, Baso # (Auto) 0.0, Total Counted 100, Neutrophils % (Manual) 72, Band Neutrophils % 10.0 H, Lymphocytes % (Manual) 9 L, Monocytes % (Manual) 9, Platelet Estimate Normal, RBC Morphology Not Reportable 07/30/19 05:32: Sodium 139, Potassium 3.5, Chloride 106, Carbon Dioxide 23, Anion Gap 13.5, BUN 15 D, Creatinine 0.70 D, Estimated Creat Clear 51, Estimated GFR 81, Est GFR ( Amer) 98 D, Glucose 217 H D, Calcium 7.9 L D , Magnesium 1.5, Total Bilirubin 0.3, AST 24 D, ALT 10 L D, Alkaline Phosphatase 43 L, Total Protein 6.1 L D, Albumin 2.3 L D, Globulin 3.8 H, Albumin/Globulin Ratio 0.6 L I & O for Last 24 hours: Intake & Output 07/27/19 07/28/19 07/29/19 07/30/19 11:59 11:59 11:59 11:59 Intake Total 2222 / 2222 Output Total 717 / 717 Balance 1505 / 1505 Weight 155 lb 6.814 oz Microbiology Reports for the Last 24 Hours: Microbiology 07/29/19 15:28 Urine,Catheterized Urine Culture - Preliminary Gram Negative Rods 07/29/19 16:55 Sputum - Endotracheal Tube Aspirate Gram Stain - Final - *Routine Respiratory Exam Present: decreased breath sounds, rhonchi. Absent: accessory muscle use, rales, wheezes - *Routine Cardiovascular Exam Present: RRR. Absent: murmur, gallop, rubs - *Routine Abdominal Exam Present: soft. Absent: tenderness, distended, guarding - *Routine Extremities Exam Absent: edema, calf tenderness - *Routine Neurological Exam Present: alert, moving all extremities Progress Note: A&P (1) Respiratory distress Status: Acute Current Visit: Yes (2) Stridor Status: Acute Current Visit: Yes (3) Epiglottitis Status: Acute Current Visit: Yes (4) CAD (coronary artery disease) Status: Acute Current Visit: Yes (5) HLD (hyperlipidemia) Status: Acute Current Visit: Yes (6) Community acquired pneumonia Status: Acute Current Visit: Yes (7) Acute and chronic respiratory failure with hypoxia Status: Acute Current Visit: Yes (8) SOB (shortness of breath) Status: Chronic Current Visit: No (9) HTN (hypertension) Status: Acute Current Visit: No (10) Elevated troponin Status: Acute Current Visit: Yes Assessment and Plan for All Diagnoses:: 1. Continue antibiotics. WBC improved. 2. Echo today to assess LV size and function 3. Repeat troponin today (possibly elevated due to acute respiratory distress/pneumonia/demand ischemia) 4. Mild anemia, likely dilutional 5. Renal status normal.
--- NOTE | 2019-07-30 09:42 | Progress Note ---
Internal Medicine - PN: Subj *Date: 07/30/19 *Time: 09:40 Interval history: Patient still on vent have an echo Exam Vital signs and Labs for Last 24 Hours: Temp Pulse Resp BP Pulse Ox 97.7 F 60 16 111/46 L 100 07/30/19 09:00 07/30/19 09:00 07/30/19 09:00 07/30/19 09:00 07/30/19 09:00 Laboratory Results - last 24 hr 07/29/19 13:00: WBC 18.1 H, RBC 4.45, Hgb 12.3, Hct 41.0, MCV 92.0, MCH 27.7, MCHC 30.1 L, RDW 15.2, Plt Count 545 H, MPV 7.7, Neut % (Auto) 85.8 H, Lymph % (Auto) 7.2 L, [place] % (Auto) 6.8, Eos % (Auto) 0.1, Baso % (Auto) 0.2, Neut # (Auto) 15.5 H, Lymph # (Auto) 1.3, [place] # (Auto) 1.2 H, Eos # (Auto) 0.0, Baso # (Auto) 0.0, Total Counted 100, Neutrophils % (Manual) 78 H, Lymphocytes % (Manual) 13, Monocytes % (Manual) 9, Platelet Estimate Moderate increase, Hypochromasia 2+ 07/29/19 13:00: Sodium 136, Potassium 4.2, Chloride 97 L, Carbon Dioxide 24, Anion Gap 19.2 H, BUN 26 H, Creatinine 0.96, Estimated Creat Clear 46, Estimated GFR 56 L, Est GFR ( Amer) 68, Glucose 148 H, Calcium 9.6, Total Bilirubin 0.5, AST 39 H, ALT 15, Alkaline Phosphatase 67, Troponin I 1.32 H, Total Protein 8.4 H, Albumin 3.7, Globulin 4.7 H, Albumin/Globulin Ratio 0.8 L 07/29/19 13:00: B-Natriuretic Peptide 967 H 07/29/19 13:12: Specimen Source Right brachial, O2 % Room air, ABG pH 7.47 H, ABG pCO2 29.2 L, ABG pO2 54.2 L, ABG HCO3 20.9 L, ABG Total CO2 21.8 L, ABG O2 Saturation 90, ABG Base Excess -2.7 L, Crow Test Acceptable 07/29/19 14:08: Lactate 2.7 H 07/29/19 14:08: Influenza Type A Ag Negative, Influenza Type B Ag Negative 07/29/19 14:08: Group A Strep Rapid Negative 07/29/19 15:28: Urine Color Yellow, Urine Appearance Clear, Urine pH 6.0, Ur Specific [place] 1.020, Urine Protein Trace, Urine Glucose (UA) Negative, Urine Ketones Negative, Urine Blood Negative, Urine Nitrate Positive, Urine Bilirubin Negative, Urine Urobilinogen 0.2, Ur Leukocyte Esterase 1+ A, Urine RBC 5-10, Urine WBC 10-20, Ur Squamous Epith Cells 10-20, Urine Bacteria 4+ 07/29/19 18:11: Specimen Source Left brachial, O2 % 80, ABG pH 7.40, ABG pCO2 30.9 L, ABG pO2 108.6 H, ABG HCO3 18.9 L, ABG Total CO2 19.8 L, ABG O2 Saturation 98, ABG Base Excess -5.9 L, Tidal Volume 400 07/29/19 18:36: Lactate 1.3 07/30/19 05:32: WBC 16.7 H, RBC 3.75 L, Hgb 10.2 L D, Hct 34.3 L, MCV 91.6, MCH 27.5, MCHC 30.1 L, RDW 15.3, Plt Count 396 D, MPV 7.6, Neut % (Auto) 83.8 H, Lymph % (Auto) 6.9 L, [place] % (Auto) 8.2, Eos % (Auto) 0.8, Baso % (Auto) 0.2, Neut # (Auto) 14.0 H, Lymph # (Auto) 1.2, [place] # (Auto) 1.4 H, Eos # (Auto) 0.1, Baso # (Auto) 0.0, Total Counted 100, Neutrophils % (Manual) 72, Band Neutrophils % 10.0 H, Lymphocytes % (Manual) 9 L, Monocytes % (Manual) 9, Platelet Estimate Normal, RBC Morphology Not Reportable 07/30/19 05:32: Sodium 139, Potassium 3.5, Chloride 106, Carbon Dioxide 23, Anion Gap 13.5, BUN 15 D, Creatinine 0.70 D, Estimated Creat Clear 51, Estimated GFR 81, Est GFR ( Amer) 98 D, Glucose 217 H D, Calcium 7.9 L D , Magnesium 1.5, Total Bilirubin 0.3, AST 24 D, ALT 10 L D, Alkaline Phosphatase 43 L, Total Protein 6.1 L D, Albumin 2.3 L D, Globulin 3.8 H, Albumin/Globulin Ratio 0.6 L I & O for Last 24 hours: Intake & Output 07/27/19 07/28/19 07/29/19 07/30/19 11:59 11:59 11:59 11:59 Intake Total 2636 / 2636 Output Total 851 / 851 Balance 1785 / 1785 Weight 155 lb 6.814 oz Microbiology Reports for the Last 24 Hours: Microbiology 07/29/19 16:55 Sputum - Endotracheal Tube Aspirate Gram Stain - Final 07/29/19 16:55 Sputum - Endotracheal Tube Aspirate Sputum Culture - Preliminary 07/29/19 15:28 Urine,Catheterized Urine Culture - Preliminary Gram Negative Rods - Constitutional no acute distress - *Routine HEENT Exam Head: Present: normocephalic Eye: Present: PERRL ENT: Present: mucous membranes moist - *Routine Neck Exam Present: supple. Absent: lymphadenopathy - *Routine Respiratory Exam Present: patient mechanically ventilated, CTA bilaterally, diminished air movement - *Routine Cardiovascular Exam Present: RRR - *Routine Abdominal Exam Present: soft, normoactive bowel sounds. Absent: tenderness - *Routine Extremities Exam Present: full ROM. Absent: cyanosis, clubbing, edema - *Routine Skin Exam Present: intact - *Routine Neurological Exam Present: alert Sedated - Routine Psychiatric Exam Present: unable to assess Assessment and Plan (1) Respiratory distress Current visit: Yes Status: Acute Category: Medical Code(s): R06.03 - Acute respiratory distress (2) Stridor Current visit: Yes Status: Acute Category: Medical Code(s): R06.1 - Stridor (3) Epiglottitis Current visit: Yes Status: Acute Category: Medical Code(s): J05.10 - Acute epiglottitis without obstruction (4) CAD (coronary artery disease) Current visit: Yes Status: Acute Category: Medical Code(s): I25.10 - Atherosclerotic heart disease of [place] coronary artery without angina pectoris (5) HLD (hyperlipidemia) Current visit: Yes Status: Acute Category: Medical Code(s): E78.5 - Hyperlipidemia, unspecified (6) Community acquired pneumonia Current visit: Yes Status: Acute Qualifiers: Laterality: right Lung location: lower lobe of lung Qualified Code(s): J18.1 - Lobar pneumonia, unspecified organism Category: Medical Code(s): J18.9 - Pneumonia, unspecified organism (7) Acute and chronic respiratory failure with hypoxia Current visit: Yes Status: Acute Category: Medical Code(s): J96.21 - Acute and chronic respiratory failure with hypoxia (8) SOB (shortness of breath) Current visit: No Status: Chronic Category: Medical Code(s): R06.02 - Shortness of breath (9) HTN (hypertension) Current visit: No Status: Acute Qualifiers: Hypertension type: essential hypertension Qualified Code(s): I10 - Essential (primary) hypertension Category: Medical Code(s): I10 - Essential (primary) hypertension (10) Elevated troponin Current visit: Yes Status: Acute Category: Medical Code(s): R79.89 - Other specified abnormal findings of blood chemistry - Assessment and plan all Dx Assessment and Plan for all problems:: Rounded with Dr. Davis all orders per Ryan
--- NOTE | 2019-07-30 11:55 | Cardiology Report ---
APPROVED REPORT EXAM: Comprehensive 2D, Doppler, and color-flow Echocardiogram Bonus Clerk: Zoe Flores RDCS Ht: 4 ft 6 in Wt: 155lbs BSA: 1.55 BP: 104/45 mmHg Indications: COPD, Shortness of Breath, CAD, Hyperlipidemia, Hypertension/HDD, RESP DISTRESS PATIENT ON [facility] VENTILATOR COPD, CAD, Hypertension/HDD M-Mode Dimensions RVDd 2.20 cm (0.9-2.6)LA Diam 2.90 cm (1.9-4.0) LVDd 3.70 cm (3.5-5.7)Ao Diam 2.50 cm (2.0-3.7) LVDs 2.20 cm (3.5-5.7)AV Cusp 1.80 cm (1.5-2.6) IVSd 1.00 cm (0.6-1.1)PWd 0.80 cm (0.6-1.1) EF (Teich) 72.10% FS 40.50% EDV (Teich) 58.10 mLESV (Teich) 16.20 mL LV Diastology E/A Ratio 0.9MED E' 5.36 (< 7 cm/sec) E'/MED E' Ratio11.80 (>14)LAT E' 6.53 (<10 cm/sec) E/LAT E' Ratio 9.70 (>14) Mitral Valve MV E Max Jose Alberto. 63.20 (40-130 cm/s)MV A Velocity 74.00 (40-130 cm/s) E/A Ratio 0.90 Left Ventricle Left atrium is mildly enlarged, left ventricle is normal size, mild concentric left ventricular hypertrophy, visually estimated ejection fraction 55% with no regional wall motion abnormality. There is abnormal septal motion. Diastolic parameters are inconclusive. Right Ventricle Right atrium and right ventricular normal size and contractility. Aortic Valve Aortic valve is thickened and calcified leaflet continue to display mobility. There is no aortic stenosis aortic insufficiency. Mitral Valve Mitral valve is grossly normal, there is mild mitral regurgitation. Tricuspid Valve Tricuspid valve is grossly normal, there is mild tricuspid regurgitation. Pulmonic Valve Pulmonic valve is poorly visualized. Great Vessels Aortic root is normal size. Pericardium No significant pericardial effusion noted. Conclusion 1. Initially difficult study because of the patient factors and poor acoustic windows 2. Mildly enlarged left atrium, normal left ventricular size, mild concentric left ventricular hypertrophy, visually estimated ejection fraction 55% with no regional wall motion abnormality, diastolic parameters are inconclusive. 3. Mild mitral and tricuspid regurgitation 4. No significant pericardial effusion noted. Electronically signed by : Gurdeep Remy, 07/30/2019 11:54:29
--- NOTE | 2019-07-30 19:37 | Electrocardiograph Report ---
APPROVED REPORT Exam: Resting ECG HR:107 bpm ECG Measurements Heart Rate 107 AXES MT 190 P 64 QRSd 116 QRS -26 QT 312 T125 QTc 416 <Conclusion> Sinus tachycardia Anteroseptal infarct,Old Incomplete LBBB Abnormal ECG Electronically signed by : Manish Tyler, 07/30/2019 19:36:48
[2019-07-31 05:45] LABS: Basophils % 0.1 % (0.1-2.0); Eosinophils # 0.1 K/mm3 (0.0-0.4); Eosinophils % 0.5 % (0.1-12.0); Hematocrit 30.9 % (37.0-47.0); Hemoglobin 9.6 g/dL (12.2-16.2); Lymphocytes # 1.8 K/mm3 (0.7-4.5); Lymphocytes % 11.4 % (10-50); Mean Corpuscular HGB Conc 31.2 g/dL (31.8-35.4); Mean Corpuscular Volume 91.5 fl (81-99); Mean Platelet Volume 7.6 fl (7.4-10.4); Monocytes # 1.1 K/mm3 (0.1-1.0); Monocytes % 6.9 % (1.7-9.3); Neutrophils % 81.1 % (37.0-80.0); Platelet Count 383 K/mm3 (142-424); Red Blood Count 3.38 M/mm3 (4.20-5.40); Red Cell Distribution Width 15.2 % (11.5-17.5)
[2019-07-31 05:52] LABS: ABG Base Excess -4.1 mmol/L (-2.4-2.3); ABG HCO3 20.2 mmhg (22.0-26.0); ABG Oxygen Saturation 96 % (90-100); ABG PCO2 31.4 mmhg (35.0-45.0); ABG PH 7.43 mmol/L (7.35-7.45); ABG PO2 84.7 mmhg (80-100); ABG TCO2 21.2 mmhg (23-27)
[2019-07-31 05:53] LABS: Anion Gap 15.5 mEq/L (5-15); Calcium 7.9 mg/dL (8.5-10.1)
[2019-07-31 05:54] LABS: Allen's Test Patient Unable; Oxygen 40 %; PEEP 5; Tidal Volume 400
[2019-07-31 07:51] LABS: Lymphocytes % 10 % (10-50); Monocytes % 8 % (2-9); Neutrophils % 77 % (42-76); Total Cells Counted 100
--- NOTE | 2019-07-31 08:13 | Progress Note ---
Subjective Date: 07/31/19 Time: 08:08 Principal diagnosis: Respiratory distress, Pneumonia, elevated troponin Interval history: 78 yo WF in ICU intubated and on vent but awakens to verbal. CT of neck and chest reviewed, no epiglottitis. There is evidence of aspiration pneumonia. Nursing relates pulse rates in the 40-50's bpm. Exam Vital signs and Labs for Last 24 Hours: Temp Pulse Resp BP Pulse Ox 98.5 F 44 L 14 153/68 H 100 07/31/19 05:00 07/31/19 07:00 07/31/19 07:00 07/31/19 07:00 07/31/19 07:00 Laboratory Results - last 24 hr 07/30/19 05:32: Total Counted 100, Neutrophils % (Manual) 72, Band Neutrophils % 10.0 H, Lymphocytes % (Manual) 9 L, Monocytes % (Manual) 9, Platelet Estimate Normal, RBC Morphology Not Reportable 07/30/19 05:32: Troponin I 1.03 H 07/31/19 05:30: WBC 16.0 H, RBC 3.38 L, Hgb 9.6 L, Hct 30.9 L, MCV 91.5, MCH 28.5, MCHC 31.2 L, RDW 15.2, Plt Count 383, MPV 7.6, Neut % (Auto) 81.1 H, Lymph % (Auto) 11.4, [place] % (Auto) 6.9, Eos % (Auto) 0.5, Baso % (Auto) 0.1, Neut # (Auto) 13.0 H, Lymph # (Auto) 1.8, [place] # (Auto) 1.1 H, Eos # (Auto) 0.1, Baso # (Auto) 0.0, Total Counted 100, Neutrophils % (Manual) 77 H, Band Neutrophils % 5.0, Lymphocytes % (Manual) 10, Monocytes % (Manual) 8, Platelet Estimate Normal 07/31/19 05:30: Sodium 145, Potassium 3.5, Chloride 111 H, Carbon Dioxide 22, Anion Gap 15.5 H, BUN 15, Creatinine 0.62, Estimated Creat Clear 51, Estimated GFR 93, Est GFR ( Amer) 112, Glucose 158 H D, Calcium 7.9 L 07/31/19 06:00: Specimen Source Right radial, O2 % 40, ABG pH 7.43, ABG pCO2 31.4 L, ABG pO2 84.7, ABG HCO3 20.2 L, ABG Total CO2 21.2 L, ABG O2 Saturation 96, ABG Base Excess -4.1 L, Crow Test Patient unable, Vent Rate 14, Tidal Volume 400, PEEP 5 I & O for Last 24 hours: Intake & Output 07/28/19 07/29/19 07/30/19 07/31/19 11:59 11:59 11:59 11:59 Intake Total 2895 / 3033 2655 / 2655 Output Total 948 / 1063 2002 Balance 1947 / 1970 652 / 652 Weight 155 lb 6.814 oz Microbiology Reports for the Last 24 Hours: Microbiology 07/29/19 15:28 Urine,Catheterized Urine Culture - Final Enterobacter aerogenes 07/29/19 16:55 Sputum - Endotracheal Tube Aspirate Gram Stain - Final 07/29/19 16:55 Sputum - Endotracheal Tube Aspirate Sputum Culture - Preliminary - *Routine Respiratory Exam Present: decreased breath sounds, rhonchi. Absent: accessory muscle use, rales, wheezes - *Routine Cardiovascular Exam Present: RRR. Absent: murmur, gallop, rubs - *Routine Extremities Exam Absent: edema, calf tenderness Progress Note: A&P (1) Respiratory distress Status: Acute Current Visit: Yes (2) Stridor Status: Acute Current Visit: Yes (3) Epiglottitis Status: Acute Current Visit: Yes (4) CAD (coronary artery disease) Status: Acute Current Visit: Yes (5) HLD (hyperlipidemia) Status: Acute Current Visit: Yes (6) Community acquired pneumonia Status: Acute Current Visit: Yes (7) Acute and chronic respiratory failure with hypoxia Status: Acute Current Visit: Yes (8) SOB (shortness of breath) Status: Chronic Current Visit: No (9) HTN (hypertension) Status: Acute Current Visit: No (10) Elevated troponin Status: Acute Current Visit: Yes Assessment and Plan for All Diagnoses:: 1. Echo shows normal LVEF without wall motion abnormality. Will not proceed with cardiac cath at this time. 2. Extubation per Dr. Davis 3. Bilateral pneumonia, on ABX 4. Once patient has recovered from pneumonia, would consider further cardiac workup as outpatient. 5. Elevated troponins secondary to demand ischemia from bilateral pneumonia.
--- NOTE | 2019-07-31 08:52 | Progress Note ---
Internal Medicine - PN: Subj *Date: 07/31/19 *Time: 08:49 Interval history: 78-year-old female patient resting in bed tolerating vinaigrette ventilator without difficulty. Communicated her that we are going to attempt to wean off the ventilator today she shook her head and appears to understand Exam Vital signs and Labs for Last 24 Hours: Temp Pulse Resp BP Pulse Ox 98.5 F 44 L 14 153/68 H 100 07/31/19 05:00 07/31/19 07:00 07/31/19 07:00 07/31/19 07:00 07/31/19 07:00 Laboratory Results - last 24 hr 07/30/19 05:32: Troponin I 1.03 H 07/31/19 05:30: WBC 16.0 H, RBC 3.38 L, Hgb 9.6 L, Hct 30.9 L, MCV 91.5, MCH 28.5, MCHC 31.2 L, RDW 15.2, Plt Count 383, MPV 7.6, Neut % (Auto) 81.1 H, Lymph % (Auto) 11.4, [place] % (Auto) 6.9, Eos % (Auto) 0.5, Baso % (Auto) 0.1, Neut # (Auto) 13.0 H, Lymph # (Auto) 1.8, [place] # (Auto) 1.1 H, Eos # (Auto) 0.1, Baso # (Auto) 0.0, Total Counted 100, Neutrophils % (Manual) 77 H, Band Neutrophils % 5.0, Lymphocytes % (Manual) 10, Monocytes % (Manual) 8, Platelet Estimate Normal 07/31/19 05:30: Sodium 145, Potassium 3.5, Chloride 111 H, Carbon Dioxide 22, Anion Gap 15.5 H, BUN 15, Creatinine 0.62, Estimated Creat Clear 51, Estimated GFR 93, Est GFR ( Amer) 112, Glucose 158 H D, Calcium 7.9 L 07/31/19 06:00: Specimen Source Right radial, O2 % 40, ABG pH 7.43, ABG pCO2 31.4 L, ABG pO2 84.7, ABG HCO3 20.2 L, ABG Total CO2 21.2 L, ABG O2 Saturation 96, ABG Base Excess -4.1 L, Crow Test Patient unable, Vent Rate 14, Tidal Volume 400, PEEP 5 I & O for Last 24 hours: Intake & Output 07/28/19 07/29/19 07/30/19 07/31/19 23:59 23:59 23:59 23:59 Intake Total 787 / 787 3183 / 3183 1580 / 1580 Output Total 372 / 372 2341 / 2361 238 / 238 Balance 415 / 415 842 / 822 1342 / 1342 Weight 148 lb 3 oz 155 lb 6.814 oz Microbiology Reports for the Last 24 Hours: Microbiology 07/29/19 15:28 Urine,Catheterized Urine Culture - Final Enterobacter aerogenes 07/29/19 16:55 Sputum - Endotracheal Tube Aspirate Gram Stain - Final 07/29/19 16:55 Sputum - Endotracheal Tube Aspirate Sputum Culture - Preliminary - Constitutional no acute distress - *Routine HEENT Exam Head: Present: normocephalic Eye: Present: EOMI, PERRL, normal accommodation ENT: Present: mucous membranes dry - *Routine Neck Exam Present: supple, trachea midline. Absent: JVD, tracheal deviation - *Routine Respiratory Exam Present: patient mechanically ventilated, rhonchi. Absent: rales - *Routine Cardiovascular Exam Present: RRR - *Routine Abdominal Exam Present: soft, normoactive bowel sounds. Absent: tenderness, firm - *Routine Extremities Exam Present: full ROM. Absent: clubbing, calf tenderness - Routine Back/Spine/Pelvis Exam Back/Spine: Present: full ROM. Absent: CVA tenderness - *Routine Skin Exam Present: intact, warm. Absent: cyanosis - *Routine Neurological Exam Present: alert, CN II-XII intact, hearing grossly intact. Absent: motor deficit - Routine Psychiatric Exam Present: normal affect. Absent: auditory hallucinations, visual hallucinations Assessment and Plan (1) Respiratory distress Current visit: Yes Status: Acute Category: Medical Code(s): R06.03 - Acute respiratory distress (2) Stridor Current visit: Yes Status: Acute Category: Medical Code(s): R06.1 - Stridor (3) Epiglottitis Current visit: Yes Status: Acute Category: Medical Code(s): J05.10 - Acute epiglottitis without obstruction (4) CAD (coronary artery disease) Current visit: Yes Status: Acute Category: Medical Code(s): I25.10 - Atherosclerotic heart disease of [place] coronary artery without angina pectoris (5) HLD (hyperlipidemia) Current visit: Yes Status: Acute Category: Medical Code(s): E78.5 - Hyperl ipidemia, unspecified (6) Community acquired pneumonia Current visit: Yes Status: Acute Qualifiers: Laterality: right Lung location: lower lobe of lung Qualified Code(s): J18.1 - Lobar pneumonia, unspecified organism Category: Medical Code(s): J18.9 - Pneumonia, unspecified organism (7) Acute and chronic respiratory failure with hypoxia Current visit: Yes Status: Acute Category: Medical Code(s): J96.21 - Acute and chronic respiratory failure with hypoxia (8) SOB (shortness of breath) Current visit: No Status: Chronic Category: Medical Code(s): R06.02 - Shortness of breath (9) HTN (hypertension) Current visit: No Status: Acute Qualifiers: Hypertension type: essential hypertension Qualified Code(s): I10 - Essential (primary) hypertension Category: Medical Code(s): I10 - Essential (primary) hypertension (10) Elevated troponin Current visit: Yes Status: Acute Category: Medical Code(s): R79.89 - Other specified abnormal findings of blood chemistry - Assessment and plan all Dx Assessment and Plan for all problems:: Rounded with Dr. Davis all orders per Dr. Davis 1. Will come to wean off ventilator Cardiology has seen and recommends: 1. Echo shows normal LVEF without wall motion abnormality. Will not proceed with cardiac cath at this time. 2. Extubation per Dr. Davis 3. Bilateral pneumonia, on ABX 4. Once patient has recovered from pneumonia, would consider further cardiac workup as outpatient. 5. Elevated troponins secondary to demand ischemia from bilateral pneumonia.
--- NOTE | 2019-07-31 09:11 | Pharmacy Consult Notes ---
[facility] Pharmacy VTE Monitoring - Patient Demographics Admission date: 07/29/19 Report Date: 07/31/19 Time: 09:10 Allergies/Adverse Reactions: Patient Allergies morphine Allergy (Severe, Verified 07/16/19 11:53) Anaphylaxis hydrocodone Allergy (Intermediate, Verified 07/16/19 11:53) atropine [From ] Allergy (Mild, Verified 07/16/19 11:53) calcium Allergy (Mild, Verified 07/16/19 11:53) calcium carbonate [From Florical] Allergy (Mild, Verified 07/16/19 11:53) codeine Allergy (Mild, Verified 07/16/19 11:53) dicyclomine [From Bentyl] Allergy (Mild, Verified 07/16/19 11:53) erythromycin base [From Erythrocin] Allergy (Mild, Verified 07/16/19 11:53) hyoscyamine [From ] Allergy (Mild, Verified 07/16/19 11:53) levofloxacin [From Levaquin] Allergy (Mild, Verified 07/16/19 11:53) melatonin Allergy (Mild, Verified 07/16/19 11:53) pantoprazole Allergy (Mild, Verified 07/16/19 11:53) phenobarbital [From ] Allergy (Mild, Verified 07/16/19 11:53) propoxyphene Allergy (Mild, Verified 07/16/19 11:53) scopolamine [From ] Allergy (Mild, Verified 07/16/19 11:53) sodium fluoride [From Florical] Allergy (Mild, Verified 07/16/19 11:53) Sulfa (Sulfonamide Antibiotics) Allergy (Mild, Verified 07/16/19 11:53) tizanidine Allergy (Mild, Verified 07/16/19 11:53) Height: 1.35 m Weight: 70.5 kg Patient Problems: Current Active Problems Community acquired pneumonia (Acute) Acute and chronic respiratory failure with hypoxia (Acute) Respiratory distress (Acute) Stridor (Acute) Epiglottitis (Acute) CAD (coronary artery disease) (Acute) HLD (hyperlipidemia) (Acute) Elevated troponin (Acute) - VTE Risk Labs: VTE Related Lab Results Hgb 9.6 g/dL (12.2-16.2) L 07/31/19 05:30 Hct 30.9 % (37.0-47.0) L 07/31/19 05:30 Plt Count 383 K/mm3 (142-424) 07/31/19 05:30 BUN 15 mg/dL (7-18) 07/31/19 05:30 Creatinine 0.62 mg/dL (0.55-1.02) 07/31/19 05:30 Estimated Creat Clear 51 mL/min (50-200) 07/31/19 05:30 - Prophylaxis VTE Prophylaxis Ordered?: Yes Types of VTE Prophylaxis: IPCS Thigh High Location of Applied Device: Bilateral Lower Extremeties - VTE Diagnosis Confirmed Treatment or plan recommended: Continue Current Treatment
--- NOTE | 2019-07-31 16:26 | Pharmacy Consult Notes ---
- Pharmacy Consult Date: 07/31/19 Time: 16:23 Referring provider: DR. SHAHID Reason for Consult:: VANCOMYCIN DOSE CHANGE Allergies and ADEs:: Allergies Allergy/AdvReac Type Severity Reaction Status Date / Time morphine Allergy Severe Anaphylaxis Verified 07/16/19 11:53 hydrocodone Allergy Intermediate Verified 07/16/19 11:53 atropine [From ] Allergy Mild Verified 07/16/19 11:53 calcium Allergy Mild Verified 07/16/19 11:53 calcium carbonate Allergy Mild Verified 07/16/19 11:53 [From Florical] codeine Allergy Mild Verified 07/16/19 11:53 dicyclomine [From Bentyl] Allergy Mild Verified 07/16/19 11:53 erythromycin base Allergy Mild Verified 07/16/19 11:53 [From Erythrocin] hyoscyamine [From ] Allergy Mild Verified 07/16/19 11:53 levofloxacin [From Levaquin] Allergy Mild Verified 07/16/19 11:53 melatonin Allergy Mild Verified 07/16/19 11:53 pantoprazole Allergy Mild Verified 07/16/19 11:53 phenobarbital [From ] Allergy Mild Verified 07/16/19 11:53 propoxyphene Allergy Mild Verified 07/16/19 11:53 scopolamine [From ] Allergy Mild Verified 07/16/19 11:53 sodium fluoride Allergy Mild Verified 07/16/19 11:53 [From Florical] Sulfa (Sulfonamide Allergy Mild Verified 07/16/19 11:53 Antibiotics) tizanidine Allergy Mild Verified 07/16/19 11:53 Home Medications:: Home Medications Medication Instructions Recorded Confirmed Type Aspirin [Aspirin 81mg chewable 81 mg PO DAILY 07/14/18 07/29/19 History tab] alendronate 70 mg tablet 70 mg PO WEEKLY 03/20/19 07/30/19 History benzonatate 100 mg capsule 100 mg PO BID cap 03/20/19 07/30/19 History guaifenesin 100 mg/5 mL oral liquid 200 mg PO Q4HP PRN 03/20/19 07/30/19 History loperamide 2 mg capsule 2 mg PO Q3HP PRN cap 03/20/19 07/30/19 History nitroglycerin 0.4 mg sublingual 0.4 mg SL Q5MINP PRN 03/20/19 07/30/19 History tablet acetaminophen 325 mg capsule 325 mg PO Q6HP PRN 07/09/19 07/30/19 History Carvedilol [Carvedilol 12.5mg Tab] 12.5 mg PO BID 07/30/19 07/30/19 History Cholecalciferol (Vitamin D3) 2,000 unit PO DAILY 07/30/19 07/30/19 History [Vitamin D3] Clopidogrel Bisulfate [Clopidogrel 75 mg PO DAILY 07/30/19 07/30/19 History 75mg Tab] Cyanocobalamin (Vitamin B-12) 1,000 mcg PO DAILY 07/30/19 07/30/19 History [Vitamin B-12 1000mcg Tablet] Famotidine [Pepcid 20mg Tablet] 20 mg PO DAILY 07/30/19 07/30/19 History Gabapentin [Gabapentin 300mg Cap] 300 mg PO TID 07/30/19 07/30/19 History Gemfibrozil [Lopid 600mg tab] 600 mg PO BID 07/30/19 07/30/19 History Losartan Potassium [Cozaar 25mg 25 mg PO DAILY 07/30/19 07/30/19 History Tablets] Montelukast Sodium [Montelukast 10 mg PO HS 07/30/19 07/30/19 History 10mg Tab] Spironolactone [Spironolactone 25 mg PO DAILY 07/30/19 07/30/19 History 25mg Tablet] risperiDONE [Risperidone] 0.5 mg PO BID 07/30/19 07/30/19 History Height: 1.35 m Weight: 70.5 kg Laboratory Results:: Laboratory Results - last 24 hr 07/31/19 05:30: WBC 16.0 H, RBC 3.38 L, Hgb 9.6 L, Hct 30.9 L, MCV 91.5, MCH 28.5, MCHC 31.2 L, RDW 15.2, Plt Count 383, MPV 7.6, Neut % (Auto) 81.1 H, Lymph % (Auto) 11.4, [place] % (Auto) 6.9, Eos % (Auto) 0.5, Baso % (Auto) 0.1, Neut # (Auto) 13.0 H, Lymph # (Auto) 1.8, [place] # (Auto) 1.1 H, Eos # (Auto) 0.1, Baso # (Auto) 0.0, Total Counted 100, Neutrophils % (Manual) 77 H, Band Neutrophils % 5.0, Lymphocytes % (Manual) 10, Monocytes % (Manual) 8, Platelet Estimate Normal 07/31/19 05:30: Sodium 145, Potassium 3.5, Chloride 111 H, Carbon Dioxide 22, Anion Gap 15.5 H, BUN 15, Creatinine 0.62, Estimated Creat Clear 51, Estimated GFR 93, Est GFR ( Amer) 112, Glucose 158 H D, Calcium 7.9 L 07/31/19 06:00: Specimen Source Right radial, O2 % 40, ABG pH 7.43, ABG pCO2 31.4 L, ABG pO2 84.7, ABG HCO3 20.2 L, ABG Total CO2 21.2 L, ABG O2 Saturation 96, ABG Base Excess -4.1 L, Crow Test Patient unable, Vent Rate 14, Tidal Volume 400, PEEP 5 07/31/19 15:45: Vancomycin Trough 4.0 L Medical History: Reports:: Anxiety, Coronary Artery Disease, Gastroesophageal Reflux Disease(GERD), Hyperlipidemia, Hypertension, Myocardial Infarction, Seizures, Transient Ischemic Attacks (TIA) Denies:: Diabetes Mellitus Type 1, Diabetes Mellitus Type 2 Assessment and Plan (1) Respiratory distress Current visit: Yes Status: Acute Category: Medical Code(s): R06.03 - Acute respiratory distress (2) Stridor Current visit: Yes Status: Acute Category: Medical Code(s): R06.1 - Stridor (3) Epiglottitis Current visit: Yes Status: Acute Category: Medical Code(s): J05.10 - Acute epiglottitis without obstruction (4) CAD (coronary artery disease) Current visit: Yes Status: Acute Category: Medical Code(s): I25.10 - A therosclerotic heart disease of [place] coronary artery without angina pectoris (5) HLD (hyperlipidemia) Current visit: Yes Status: Acute Category: Medical Code(s): E78.5 - Hyperlipidemia, unspecified (6) Community acquired pneumonia Current visit: Yes Status: Acute Qualifiers: Laterality: right Lung location: lower lobe of lung Qualified Code(s): J18.1 - Lobar pneumonia, unspecified organism Category: Medical Code(s): J18.9 - Pneumonia, unspecified organism (7) Acute and chronic respiratory failure with hypoxia Current visit: Yes Status: Acute Category: Medical Code(s): J96.21 - Acute and chronic respiratory failure with hypoxia (8) SOB (shortness of breath) Current visit: No Status: Chronic Category: Medical Code(s): R06.02 - Shortness of breath (9) HTN (hypertension) Current visit: No Status: Acute Qualifiers: Hypertension type: essential hypertension Qualified Code(s): I10 - Es sential (primary) hypertension Category: Medical Code(s): I10 - Essential (primary) hypertension (10) Elevated troponin Current visit: Yes Status: Acute Category: Medical Code(s): R79.89 - Other specified abnormal findings of blood chemistry - Assessment and plan all Dx Assessment and Plan for all problems:: BASED ON PATIENT'S VANCOMYCIN LEVEL PRIOR TO 3RD DOSE, RECOMMEND CHANGING DOSE FROM VANCOMYCIN 750 MG Q24 TO 1250 MG Q24H AT 1300 DAILY.
[2019-07-31 23:20] LABS: ABG Base Excess -9.9 mmol/L (-2.4-2.3); ABG HCO3 19.3 mmhg (22.0-26.0); ABG Oxygen Saturation 38 % (90-100); ABG TCO2 21.1 mmhg (23-27)
[2019-07-31 23:22] LABS: ABG PH 7.13 mmol/L (7.35-7.45); Oxygen 35 %
[2019-07-31 23:23] LABS: ABG PCO2 58.8 mmhg (35.0-45.0); ABG PO2 28.2 mmhg (80-100)
[2019-07-31 23:23] LABS: Basophils # 0.1 K/mm3 (0-0.2); Basophils % 0.3 % (0.1-2.0); Eosinophils # 0.2 K/mm3 (0.0-0.4); Eosinophils % 0.5 % (0.1-12.0); Hematocrit 41.8 % (37.0-47.0); Lymphocytes # 6.6 K/mm3 (0.7-4.5); Lymphocytes % 17.2 % (10-50); Mean Corpuscular HGB Conc 28.3 g/dL (31.8-35.4); Mean Corpuscular Volume 95.9 fl (81-99); Mean Platelet Volume 8.5 fl (7.4-10.4); Monocytes % 5.2 % (1.7-9.3); Neutrophils # 29.1 K/mm3 (1.8-7.8); Neutrophils % 76.7 % (37.0-80.0); Red Blood Count 4.36 M/mm3 (4.20-5.40); Red Cell Distribution Width 15.1 % (11.5-17.5)
[2019-07-31 23:34] LABS: Hemoglobin 11.8 g/dL (12.2-16.2); Platelet Count 674 K/mm3 (142-424)
[2019-07-31 23:38] LABS: Hypochromasia 2+; Lymphocytes % 22 % (10-50); Monocytes % 4 % (2-9); Neutrophils % 64 % (42-76); Rouleaux 1+; Total Cells Counted 100
[2019-07-31 23:40] LABS: Anion Gap 17.8 mEq/L (5-15)
[2019-07-31 23:41] LABS: Calcium 8.7 mg/dL (8.5-10.1)
[2019-08-01 04:49] LABS: ABG Base Excess -2.1 mmol/L (-2.4-2.3); ABG Oxygen Saturation 98 % (90-100); ABG PCO2 33.1 mmhg (35.0-45.0); ABG PH 7.44 mmol/L (7.35-7.45); ABG PO2 132.9 mmhg (80-100)
[2019-08-01 04:52] LABS: Allen's Test Patient Unable; Oxygen 100 %; PEEP 5; Tidal Volume 450
[2019-08-01 05:46] LABS: Basophils % 0.1 % (0.1-2.0); Eosinophils # 0.1 K/mm3 (0.0-0.4); Eosinophils % 0.5 % (0.1-12.0); Hematocrit 36.8 % (37.0-47.0); Hemoglobin 10.8 g/dL (12.2-16.2); Lymphocytes # 1.2 K/mm3 (0.7-4.5); Lymphocytes % 5.4 % (10-50); Mean Corpuscular HGB Conc 29.4 g/dL (31.8-35.4); Mean Corpuscular Volume 94.1 fl (81-99); Mean Platelet Volume 8.2 fl (7.4-10.4); Monocytes # 1.4 K/mm3 (0.1-1.0); Monocytes % 6.1 % (1.7-9.3); Neutrophils # 19.5 K/mm3 (1.8-7.8); Neutrophils % 87.8 % (37.0-80.0); Platelet Count 427 K/mm3 (142-424); Red Blood Count 3.91 M/mm3 (4.20-5.40); Red Cell Distribution Width 15.1 % (11.5-17.5)
[2019-08-01 05:47] LABS: White Blood Count 22.2 K/mm3 (4.8-10.8)
[2019-08-01 05:49] LABS: Anion Gap 17.8 mEq/L (5-15); Calcium 8.4 mg/dL (8.5-10.1)
--- NOTE | 2019-08-01 09:07 | Progress Note ---
Acute Rapid Response Note - Subjective Date Responded: 07/31/19 Time Responded: 23:00 Provider Note: called to see pt as she was having resp decline - pt with dec loc and dec resp effort with dec o2 sat - - Objective Findings: Vital Signs - Last 4 Hours Temperature 98.0 F 08/01/19 07:00 Temperature Source Axillary 08/01/19 07:00 Pulse Rate 60 08/01/19 08:00 Respiratory Rate 12 08/01/19 07:00 Blood Pressure 123/64 08/01/19 07:00 Blood Pressure Mean 83 08/01/19 07:00 Blood Pressure Source Automatic Cuff 08/01/19 07:00 Blood Pressure Position Supine 08/01/19 07:00 02 Sat by Pulse Oximetry 98 08/01/19 07:00 Oxygen Delivery Method 08/01/19 08:00 Oxygen Flow Rate (LPM) 4 07/31/19 23:00 Lab Results for Past 12 Hours 08/01/19 05:30: Sodium 146 H, Potassium 2.8 L* D, Chloride 108 H, Carbon Dioxide 23, Anion Gap 17.8 H, BUN 15, Creatinine 0.79, Estimated Creat Clear 51, Estimated GFR 70, Est GFR ( Amer) 85 D, Glucose 166 H D, Calcium 8.4 L 08/01/19 05:30: WBC 22.2 H* D, RBC 3.91 L, Hgb 10.8 L, Hct 36.8 L, MCV 94.1, MCH 27.7, MCHC 29.4 L, RDW 15.1, Plt Count 427 H D, MPV 8.2, Neut % (Auto) 87.8 H, Lymph % (Auto) 5.4 L, [place] % (Auto) 6.1, Eos % (Auto) 0.5, Baso % (Auto) 0.1, Neut # (Auto) 19.5 H, Lymph # (Auto) 1.2, [place] # (Auto) 1.4 H, Eos # (Auto) 0.1, Baso # (Auto) 0.0 08/01/19 03:00: Specimen Source Right radial, O2 % 100, ABG pH 7.44, ABG pCO2 33.1 L, ABG pO2 132.9 H, ABG HCO3 22.0, ABG Total CO2 23.0, ABG O2 Saturation 98, ABG Base Excess -2.1, Crow Test Patient unable, Vent Rate 12, Tidal Volume 450, PEEP 5 07/31/19 23:18: Troponin I 0.49 H 07/31/19 23:17: Sodium 143, Potassium 3.8, Chloride 107, Carbon Dioxide 22, Anion Gap 17.8 H, BUN 16, Creatinine 0.97 D, Estimated Creat Clear 51, Estimated GFR 55 L, Est GFR ( Amer) 67 D, Glucose 225 H D, Calcium 8.7 D 07/31/19 23:17: WBC 38.0 H* D, RBC 4.36 D, Hgb 11.8 L D, Hct 41.8, MCV 95.9, MCH 27.1, MCHC 28.3 L, RDW 15.1, Plt Count 674 H D, MPV 8.5, Neut % (Auto) 76.7, Lymph % (Auto) 17.2, [place] % (Auto) 5.2, Eos % (Auto) 0.5, Baso % (Auto) 0.3, Neut # (Auto) 29.1 H, Lymph # (Auto) 6.6 H, [place] # (Auto) 2.0 H, Eos # (Auto) 0 .2, Baso # (Auto) 0.1, Total Counted 100, Neutrophils % (Manual) 64, Band Neutrophils % 10.0 H, Lymphocytes % (Manual) 22, Monocytes % (Manual) 4, Platelet Estimate Moderate increase, Hypochromasia 2+, Rouleaux 1+ 07/31/19 22:45: Specimen Source Left femoral, O2 % 35, ABG pH 7.13 L*, ABG pCO2 58.8 H, ABG pO2 28.2 L, ABG HCO3 19.3 L, ABG Total CO2 21.1 L, ABG O2 Saturation 38 L*, ABG Base Excess -9.9 L, Crow Test N/a My Orders Category Date Time Status Vancomycin,Trough Timed Lab 08/02/19 12:30 Ordered Furosemide [Lasix 40mg/4mL vial] Med 08/01/19 01:45 Discontinued 40 mg IV ONCE ONE KCl 20mEq/100ml [Potassium Chloride 20mEq/100mL IVPB] Med 08/01/19 08:55 Active 100 ml IV Q2H Midazolam HCl/Pf [Midazolam 2mg/2mL vial] Med 08/01/19 01:45 Discontinued 2 mg IV ONCE ONE Propofol [Diprivan 10mg/mL 100mL Bottle] 100 ml Med 08/01/19 01:45 Active IV 5 mcg/kg/min Sodium Chloride For Inhalation [Sodium Chloride 3% 15mL Med 08/01/19 02:16 Active Neb] 3 ml IH ONCE PRN Arterial Blood Gas Routine RT 08/01/19 03:00 Completed Rapid Response Exam - General General appearance: obtunded, in distress (Coughing nonstop) - Head Head exam: atraumatic - Eye Eye exam: Present: PERRL, EOMI - ENT ENT exam: Present: mucous membranes dry - Neck Neck exam: Present: trachea midline - Respiratory Respiratory exam: Present: respiratory distress, other (dec bs bilat ) - Cardiovascular Cardiovascular exam: Present: regular rate, tachycardia, systolic murmur - Abdominal Exam Abdominal exam: Present: soft - Extremities Exam Extremities exam: Present: pedal edema - Neurological Exam Neurological exam: Present: other (no posturing ) - Skin Skin exam: Present: intact RR Procedures/Assess/Plan - Bedside Intubation Time Out Performed: Yes Sedative: Versed Mg given: 2 Laryngoscope: Les Tube size: 7.5 Tube uncuffed: No Secured location: lips Placement confirmation: visualized tube passing through cords, equal breath sounds bilaterally, confirmation by capnometry Patient tolerated procedure intubation: well, no complications Intubation Complications: none (1) Respiratory distress Status: Acute Assessment and Plan: will re-intubate at this time (2) Stridor Status: Acute (3) Epiglottitis Status: Acute (4) CAD (coronary artery disease) Status: Acute (5) HLD (hyperlipidemia) Status: Acute (6) Community acquired pneumonia Status: Acute Qualifiers: Laterality: right Lung location: lower lobe of lung Qualified Code(s): J18.1 - Lobar pneumonia, unspecified organism (7) Acute and chronic respiratory failure with hypoxia Status: Acute (8) SOB (shortness of breath) Status: Chronic (9) HTN (hypertension) Status: Acute Qualifiers: Hypertension type: essential hypertension Qualified Code(s): I10 - Essential (primary) hypertension (10) Elevated troponin Status: Acute (11) LBBB (left bundle branch block) Status: Acute - Assessment and plan all Dx Assessment and Plan for all problems:: will re-intubate at this time
--- NOTE | 2019-08-01 09:20 | Discharge Summary ---
General - General Admission date:: 07/29/19 Discharge date: 08/01/19 HPI HPI: [facility] - pt was found to have in ed-Patient is a 78-year-old white female from [facility] who comes in with complaint of shortness of breath and cough for the past 2 weeks she is continually coughing to the point that she can hardly answer questions but she says she may have had some fever and is coughing up some yellow mucus she also has a sore throat and says her chest hurts pt with elevated trop and will be seen by card AD 2. HTN 3. HLD 4. DM 5. gerd 6. TIA 7. TN 8. Seizures History of present illness: This is a 78 year old female who was admitted from the halfway. Pt has been having worsening SOB for the last 2-3 weeks. She states she is having tightness in the chest as well with her SOB. She states symptoms are severe. at rest. worse with exertion. nothing improves symptoms. she states sheis having to work really hard to breathe. denies fever, chills, Vomiting or diarrhea. She has associated orthopnea. she states that she does not feel well at all. extreme fatigue noted as well. when entering room pt is very labored. she has stridor. using accessory muscles to breathe. pt sounds as if she has adult epiglottitis. will call for stat anesthesia consult for intubation. Hospital Course Hospital Course: pt was admitted and placed on abx and ivf - pt began to have resp distress and was seen and intubated and transferred to icu-istory of Present Illness Consult date: 07/29/19 Requesting physician: Donaldo Davis Consult reason: shortness of breath Chief complaint: SOB Additional Medical History:: 1. CAD 2. HTN 3. HLD 4. DM 5. gerd 6. TIA 7. TN 8. Seizures History of present illness: This is a 78 year old female who was admitted from the halfway. Pt has been having worsening SOB for the last 2-3 weeks. She states she is having tightness in the chest as well with her SOB. She states symptoms are severe. at rest. worse with exertion. nothing improves symptoms. she states sheis having to work really hard to breathe. denies fever, chills, Vomiting or diarrhea. She has associated orthopnea. she states that she does not feel well at all. extreme fatigue noted as well. when entering room pt is very labored. she has stridor. using accessory muscles to breathe. pt sounds as if she has adult epiglottitis. will call for stat anesthesia consult for intubation. pt was intubated and not felt to have epiglottis but stridor resp assoc with resp failure- pt did well and the next day was ok for extubation scussed case with Dr. Okeefe Consult ENT (discussed with Dr. Mayen) Will repeat solumedrol at [address] of neck for possible epiglottitis prior to discussion of extubation Obtain CT of chest due to complaint of chest pain Echo pending Subjective Date: 07/30/19 Time: 08:54 Principal diagnosis: Respiratory distress, Pneumonia, elevated troponin Interval history: 78 yo WF in ICU, intubated and on the ventilator. Awake and communicating with pen/paper but not able to read/understand what she is trying to communicate. She endorses chest pain but unable to reproduce with palpation. History of coronary stents per Nurse. Telemetry is sinus rhythm pt was extubated and transferred to step down - she did well till last night and has dec sat and resp effort requiring re-intubation - pt has did better since on ventilator but has increased changes on cxr and elevated fever and wbc despite abx - pt was discussed with and will be transferred sec to need for pulmonary and medical management Objective Vital signs: Temp Pulse Resp BP Pulse Ox 98.0 F 60 12 123/64 98 08/01/19 07:00 08/01/19 08:00 08/01/19 07:00 08/01/19 07:00 08/01/19 07:00 no acute distress Comments: sedated and on vent - *Routine HEENT Exam Head: Present: normocephalic Eye: Present: EOMI, PERRL Comments: intubated - *Routine Neck Exam Absent: JVD - *Routine Respiratory Exam Present: patient mechanically ventilated - *Routine Cardiovascular Exam Present: RRR, murmur, S4 - *Routine Abdominal Exam Present: soft Comments: has og tube - *Routine Extremities Exam Present: edema Comments: sl bilat - *Routine Skin Exam Present: intact - *Routine Neurological Exam sedated but no posturing - Routine Psychiatric Exam Present: unable to assess Results Labs on day of discharge: Labs from last 24 hours 10/12/19 10/12/19 10/12/19 05:30 05:30 03:00 WBC 22.2 H* D RBC 3.91 L Hgb 10.8 L Hct 36.8 L MCV 94.1 MCH 27.7 MCHC 29.4 L RDW 15.1 Plt Count 427 H D MPV 8.2 Neut % (Auto) 87.8 H Lymph % (Auto) 5.4 L [place] % (Auto) 6.1 Eos % (Auto) 0.5 Baso % (Auto) 0.1 Neut # (Auto) 19.5 H Lymph # (Auto) 1.2 [place] # (Auto) 1.4 H Eos # (Auto) 0.1 Baso # (Auto) 0.0 Total Counted Neutrophils % (Manual) Band Neutrophils % Lymphocytes % (Manual) Monocytes % (Manual) Platelet Estimate Hypochromasia Rouleaux Specimen Source Right radial O2 % 100 ABG pH 7.44 ABG pCO2 33.1 L ABG pO2 132.9 H ABG HCO3 22.0 ABG Total CO2 23.0 ABG O2 Saturation 98 ABG Base Excess -2.1 Crow Test Patient unable Vent Rate 12 Tidal Volume 450 PEEP 5 Sodium 146 H Potassium 2.8 L* D Chloride 108 H Carbon Dioxide 23 Anion Gap 17.8 H BUN 15 Creatinine 0.79 Estimated Creat Clear 51 Estimated GFR 70 Est GFR ( Amer) 85 D Glucose 166 H D Calcium 8.4 L Troponin I Stl Aeromonas (PCR) Stl C. cayetanensis PCR Stool Rotavirus (PCR) Stl Adenov F 40/41 PCR Stool Astrovirus (PCR) Stool Campylobacter PCR Stl C.difficile Tox PCR Stool Cryptosporidium PCR Stl E.coli Shiga Tox PCR Stool E coli O157 PCR Stl Enterotoxigenic E PCR Stool EPEC (PCR) Stool EAEC (PCR) Stl E. histolytica PCR Stool Giardia Lamblia PCR Stool Salmonella PCR Stool Sapovirus (PCR) Stl P. shigelloides PCR Stl Shigella/EIEC PCR St Y.enterocolitica PCR Stool Vibrio (PCR) Stl Vibrio cholerae PCR Stl Norovirus GI/GII PCR Vancomycin Trough 07/31/19 07/31/19 07/31/19 23:18 23:17 23:17 WBC 38.0 H* D RBC 4.36 D Hgb 11.8 L D Hct 41.8 MCV 95.9 MCH 27.1 MCHC 28.3 L RDW 15.1 Plt Count 674 H D MPV 8.5 Neut % (Auto) 76.7 Lymph % (Auto) 17.2 [place] % (Auto) 5.2 Eos % (Auto) 0.5 Baso % (Auto) 0.3 Neut # (Auto) 29.1 H Lymph # (Auto) 6.6 H [place] # (Auto) 2.0 H Eos # (Auto) 0.2 Baso # (Auto) 0.1 Total Counted 100 Neutrophils % (Manual) 64 Band Neutrophils % 10.0 H Lymphocytes % (Manual) 22 Monocytes % (Manual) 4 Platelet Estimate Moderate increase Hypochromasia 2+ Rouleaux 1+ Specimen Source O2 % ABG pH ABG pCO2 ABG pO2 ABG HCO3 ABG Total CO2 ABG O2 Saturation ABG Base Excess Crow Test Vent Rate Tidal Volume PEEP Sodium 143 Potassium 3.8 Chloride 107 Carbon Dioxide 22 Anion Gap 17.8 H BUN 16 Creatinine 0.97 D Estimated Creat Clear 51 Estimated GFR 55 L Est GFR ( Amer) 67 D Glucose 225 H D Calcium 8.7 D Troponin I 0.49 H Stl Aeromonas (PCR) Stl C. cayetanensis PCR Stool Rotavirus (PCR) Stl Adenov F 40/41 PCR Stool Astrovirus (PCR) Stool Campylobacter PCR Stl C.difficile Tox PCR Stool Cryptosporidium PCR Stl E.coli Shiga Tox PCR Stool E coli O157 PCR Stl Enterotoxigenic E PCR Stool EPEC (PCR) Stool EAEC (PCR) Stl E. histolytica PCR Stool Giardia Lamblia PCR Stool Salmonella PCR Stool Sapovirus (PCR) Stl P. shigelloides PCR Stl Shigella/EIEC PCR St Y.enterocolitica PCR Stool Vibrio (PCR) Stl Vibrio cholerae PCR Stl Norovirus GI/GII PCR Vancomycin Trough 07/31/19 07/31/19 07/31/19 22:45 15:45 11:45 WBC RBC Hgb Hct MCV MCH MCHC RDW Plt Count MPV Neut % (Auto) Lymph % (Auto) [place] % (Auto) Eos % (Auto) Baso % (Auto) Neut # (Auto) Lymph # (Auto) [place] # (Auto) Eos # (Auto) Baso # (Auto) Total Counted Neutrophils % (Manual) Band Neutrophils % Lymphocytes % (Manual) Monocytes % (Manual) Platelet Estimate Hypochromasia Rouleaux Specimen Source Left femoral O2 % 35 ABG pH 7.13 L* ABG pCO2 58.8 H ABG pO2 28.2 L ABG HCO3 19.3 L ABG Total CO2 21.1 L ABG O2 Saturation 38 L* ABG Base Excess -9.9 L Crow Test N/a Vent Rate Tidal Volume PEEP Sodium Potassium Chloride Carbon Dioxide Anion Gap BUN Creatinine Estimated Creat Clear Estimated GFR Est GFR ( Amer) Glucose Calcium Troponin I Stl Aeromonas (PCR) Not detected Stl C. cayetanensis PCR Not detected Stool Rotavirus (PCR) Not detected Stl Adenov F 40/41 PCR Not detected Stool Astrovirus (PCR) Not detected Stool Campylobacter PCR Not detected Stl C.difficile Tox PCR Not detected Stool Cryptosporidium PCR Not detected Stl E.coli Shiga Tox PCR Not detected Stool E coli O157 PCR Not detected Stl Enterotoxigenic E PCR Not detected Stool EPEC (PCR) Not detected Stool EAEC (PCR) Not detected Stl E. histolytica PCR Not detected Stool Giardia Lamblia PCR Not detected Stool Salmonella PCR Not detected Stool Sapovirus (PCR) Not detected Stl P. shigelloides PCR Not detected Stl Shigella/EIEC PCR Not detected St Y.enterocolitica PCR Not detected Stool Vibrio (PCR) Not detected Stl Vibrio cholerae PCR Not detected Stl Norovirus GI/GII PCR Not detected Vancomycin Trough 4.0 L Preliminary micro results at discharge 07/29/19 16:55 Sputum Culture - Preliminary Sputum - Endotracheal Tube Aspirate Gram Positive Cocci 07/29/19 14:08 Blood Culture - Preliminary Blood NO GROWTH AFTER 48 HOURS 07/29/19 14:08 Blood Culture - Preliminary Blood NO GROWTH AFTER 48 HOURS DS: Diagnosis - Discharge Diagnosis (1) Respiratory distress Status: Acute (2) Stridor Status: Acute (3) Epiglottitis Status: Acute (4) CAD (coronary artery disease) Status: Acute (5) HLD (hyperlipidemia) Status: Acute (6) Community acquired pneumonia Status: Acute (7) Acute and chronic respiratory failure with hypoxia Status: Acute (8) SOB (shortness of breath) Status: Chronic (9) HTN (hypertension) Status: Acute (10) Elevated troponin Status: Acute (11) LBBB (left bundle branch block) Status: Acute (12) Anemia Status: Acute (13) Thrombocytosis Status: Acute (14) Hypokalemia Status: Acute (15) Infection due to Enterobacter species Status: Acute Discharge Plan - Patient Discharge Instructions ACTIVITY: Continue current activity DIET: NPO - Follow up Plan Disposition: Xfer Short-Term Hosp Home Medications: Home Medications Medication Instructions Recorded Confirmed Type Aspirin [Aspirin 81mg chewable 81 mg PO DAILY 07/14/18 07/29/19 History tab] alendronate 70 mg tablet 70 mg PO WEEKLY 03/20/19 07/30/19 History benzonatate 100 mg capsule 100 mg PO BID cap 03/20/19 07/30/19 History guaifenesin 100 mg/5 mL oral liquid 200 mg PO Q4HP PRN 03/20/19 07/30/19 History loperamide 2 mg capsule 2 mg PO Q3HP PRN cap 03/20/19 07/30/19 History nitroglycerin 0.4 mg sublingual 0.4 mg SL Q5MINP PRN 03/20/19 07/30/19 History tablet acetaminophen 325 mg capsule 325 mg PO Q6HP PRN 07/09/19 07/30/19 History Carvedilol [Carvedilol 12.5mg Tab] 12.5 mg PO BID 07/30/19 07/30/19 History Cholecalciferol (Vitamin D3) 2,000 unit PO DAILY 07/30/19 07/30/19 History [Vitamin D3] Clopidogrel Bisulfate [Clopidogrel 75 mg PO DAILY 07/30/19 07/30/19 History 75mg Tab] Cyanocobalamin (Vitamin B-12) 1,000 mcg PO DAILY 07/30/19 07/30/19 History [Vitamin B-12 1000mcg Tablet] Famotidine [Pepcid 20mg Tablet] 20 mg PO DAILY 07/30/19 07/30/19 History Gabapentin [Gabapentin 300mg Cap] 300 mg PO TID 07/30/19 07/30/19 History Gemfibrozil [Lopid 600mg tab] 600 mg PO BID 07/30/19 07/30/19 History Losartan Potassium [Cozaar 25mg 25 mg PO DAILY 07/30/19 07/30/19 History Tablets] Montelukast Sodium [Montelukast 10 mg PO HS 07/30/19 07/30/19 History 10mg Tab] Spironolactone [Spironolactone 25 mg PO DAILY 07/30/19 07/30/19 History 25mg Tablet] risperiDONE [Risperidone] 0.5 mg PO BID 07/30/19 07/30/19 History Prescriptions/Medication Reconciliation: Discontinued loperamide 2 mg capsule 2 mg PO Q3HP PRN cap PRN Reason: Diarrhea nitroglycerin 0.4 mg sublingual tablet 0.4 mg SL Q5MINP PRN PRN Reason: Chest Pain guaifenesin 100 mg/5 mL oral liquid 200 mg PO Q4HP PRN PRN Reason: Cough alendronate 70 mg tablet 70 mg PO WEEKLY benzonatate 100 mg capsule 100 mg PO BID cap acetaminophen 325 mg capsule 325 mg PO Q6HP PRN PRN Reason: pain Aspirin [Aspirin 81mg chewable tab] 81 mg PO DAILY Cholecalciferol (Vitamin D3) [Vitamin D3] 2,000 unit PO DAILY Clopidogrel Bisulfate [Clopidogrel 75mg Tab] 75 mg PO DAILY Famotidine [Pepcid 20mg Tablet] 20 mg PO DAILY Gabapentin [Gabapentin 300mg Cap] 300 mg PO TID Gemfibrozil [Lopid 600mg tab] 600 mg PO BID Losartan Potassium [Cozaar 25mg Tablets] 25 mg PO DAILY Montelukast Sodium [Montelukast 10mg Tab] 10 mg PO HS risperiDONE [Risperidone] 0.5 mg PO BID Spironolactone [Spironolactone 25mg Tablet] 25 mg PO DAILY Carvedilol [Carvedilol 12.5mg Tab] 12.5 mg PO BID Cyanocobalamin (Vitamin B-12) [Vitamin B-12 1000mcg Tablet] 1,000 mcg PO DAILY - Problem Reconciliation Problems Reviewed?: Yes
--- NOTE | 2019-08-01 09:45 | Swing Bed Reports ---
Discharge/Transfer - Discharge Disposition: Xfer Short-Term Hosp Condition: Critical - Plan of Care Resident has been informed of condition and prognosis?: No Mobility Status: other (intubated) Goal of treatment:: need for higher level of care - acute cap with resp failure Rehab Potential: Fair I concur with the most recent H & P: Yes Date of most recent H & P: 07/30/19 Certification: I have reviewed and agree with this resident's plan of care. I certify that post-hospital fdc facility services are required to be given on an inpatient basis because of the need for fdc care on a continuing basis for the condition(s) for which he/she is receiving inpatient hospital services prior to admission to swing bed. I also certify that the resident meets existing SNF level of care definition.
--- NOTE | 2019-08-03 17:31 | Electrocardiograph Report ---
APPROVED REPORT Exam: Resting ECG HR:116 bpm ECG Measurements Heart Rate 116 AXES ID 148 P 47 QRSd 122 QRS -18 QT 312 T110 QTc 433 <Conclusion> Sinus tachycardia Left bundle branch block Abnormal ECG Electronically signed by : Manish Tyler, 08/03/2019 17:30:49
== END 2019-08-01 11:05 | disposition short-term general hospital (02) | DRG 208 ==
LOC: ER 13:09 → 2ND 14:27 → ICU 17:02 → 2ND 07-31 17:01
PROVIDERS: ADMIT Emergency Medicine; ATTEND Emergency Medicine
DX: I25.10 Atherosclerotic heart disease of native coronary artery without angina pectoris; I10 Essential (primary) hypertension; J18.9 Pneumonia, unspecified organism; Z95.5 Presence of coronary angioplasty implant and graft; I25.2 Old myocardial infarction; J96.21 Acute and chronic respiratory failure with hypoxia; Z79.899 Other long term (current) drug therapy
CPT/HCPCS: 36415; 70492; 71010; 71045; 71270; 80048; 80053; 80202; 81001; 82803; 82962; 83605; 83735; 83880; 84484; 85007; 85025; 87040; 87070; 87077; 87086; 87088; 87186; 87205; 87275; 87276; 87430; 87506; 93005; 93306; 94002; 94003; 94640; 94761; 96365; 96366; 99284; J2543; J2704; J3370; Q9967